=== PATIENT | female | born 1955 | race Caucasian/White ===

== ENCOUNTER 2021-03-28 10:29 | Day surgery (SDC) | payer OTHER, SELFPAY ==
[2021-03-23 13:54] VITALS: BMI 31.1
--- NOTE | 2021-03-25 12:57 | HO.ANESPROP2 ---
Documented by User: Guillermina Brown 03/25/21 12:58 HPI - Anesthesia Eval Consult details Narrative: 65yo F for Upper Endoscopy and Colonoscopy [facility] Past Medical History Medical History Asthma Barretts esophagus Depression ETOH abuse GERD (gastroesophageal reflux disease) H/O: UGI bleed Hyperlipidemia ANNE on CPAP Surgical History Surgical History History of back surgery History of esophagogastroduodenoscopy (EGD) History of excision of tumor of brain meninges History of lumpectomy of left breast Hx of colonoscopy Hx of lymph node excision [place] teeth extracted Social History Social History Are you a primary health care assistant to a significant other at home: No Do you presently have visiting nurse or other home services: No Patient Tobacco Use Status: Former Tobacco user Tobacco use type: Cigarette Advance Directives: No Advance Directives Information Provided: No Advance Directives on File: No Recently lost weight without trying: No Eating poorly because of decreased appetite: No Nutrition Risks: No Nutritional Risk Meds Allergies Allergy/AdvReac Type Severity Reaction Status Date / Time cefdinir [From OMNICEF] Allergy Unknown HIVES Verified 03/28/21 11:51 gatifloxacin [From TEQUIN] Allergy Unknown HIVES Verified 03/28/21 11:51 Sulfa (Sulfonamide Allergy Unknown HIVES Verified 03/28/21 11:51 Antibiotics) [SULFA(SULFONAMIDE ANTIBIOTICS)] Home Medications Medication Instructions Recorded Confirmed Last Taken Type bupropion HCl 150 mg PO QAM 03/23/21 03/23/21 Unknown History fluoxetine 40 mg PO DAILY 03/23/21 03/23/21 Unknown History multivitamin 1 tab PO DAILY 03/23/21 03/23/21 Unknown History rosuvastatin 10 mg PO DAILY 03/23/21 03/23/21 Unknown History Exam Exam Date and Time: March 25, 2021 1257 Height,Weight and Vital Signs: Height 5 ft 6 in Weight 87.543 kg Assessment and Plan Assessment Anesthesia Assessment: Chart Reviewed Documented by User: Archana Goodemagda 03/28/21 12:17 [facility] Past Medical History Medical History Asthma Barretts esophagus Depression ETOH abuse GERD (gastroesophageal reflux disease) H/O: UGI bleed Hyperlipidemia ANNE on CPAP Surgical History Surgical History History of back surgery History of esophagogastroduodenoscopy (EGD) History of excision of tumor of brain meninges History of lumpectomy of left breast Hx of colonoscopy Hx of lymph node excision [place] teeth extracted Social History Social History Are you a primary health care assistant to a significant other at home: No Do you presently have visiting nurse or other home services: No Patient Tobacco Use Status: Former Tobacco user Tobacco use type: Cigarette Advance Directives: No Advance Directives Information Provided: No Advance Directives on File: No Recently lost weight without trying: No Eating poorly because of decreased appetite: No Nutrition Risks: No Nutritional Risk Meds Allergies Allergy/AdvReac Type Severity Reaction Status Date / Time cefdinir [From OMNICEF] Allergy Unknown HIVES Verified 03/28/21 11:51 gatifloxacin [From TEQUIN] Allergy Unknown HIVES Verified 03/28/21 11:51 Sulfa (Sulfonamide Allergy Unknown HIVES Verified 03/28/21 11:51 Antibiotics) [SULFA(SULFONAMIDE ANTIBIOTICS)] Home Medications Medication Instructions Recorded Confirmed Last Taken Type bupropion HCl 150 mg PO QAM 03/23/21 03/23/21 Unknown History fluoxetine 40 mg PO DAILY 03/23/21 03/23/21 Unknown History multivitamin 1 tab PO DAILY 03/23/21 03/23/21 Unknown History rosuvastatin 10 mg PO DAILY 03/23/21 03/23/21 Unknown History Exam Airway Mallampati Class: II (CAps laterally) TM Dist: >3cm Neck ROM: Full Denture: Upper Heart: rrr Lungs: CTA Assessment and Plan Assessment Anesthesia Assessment: Anesthesia Plan Discussed and Chart Reviewed Final Anesthetic Review NPO: Yes ASA Class: II Final Preanesthetic Review: No Changes in Pt Med Stat and Consent Obtained/Reviewed Patient Risk: Intermediate Procedure Risk: Intermediate Anesthetic Plan Anesthetic Plan: MAC: Disposition: Standard PACU
[2021-03-28 11:53] VITALS: BP 122/59; PULSE 72; RESP 16; TEMP 36.3; O2SAT 97
[2021-03-28] MEDS: Lactated Ringers 1,000 ML 100 ML IVCONT (11:59)
[2021-03-28 14:05] VITALS: BP 108/60; PULSE 60; RESP 16; TEMP 36.1; O2SAT 95
--- NOTE | 2021-03-28 14:09 | P.BOP_ITS ---
Brief Operative Note Date of Service: 03/28/21 Pre-op diagnosis: GERD/Zazueta's, Screening Post-op diagnosis: other (Erosive esophagitis, Hiatal hernia, Gastritis, Colon polyps) Procedure: EGD with bx, Colonoscopy to the cecum with snare polypectomy(distal ascending colon polyp) and biopsy/removal of polyp Surgeon: Tico Orellana Anesthesia: MAC Was an Film Touch Up Inspector used for this Procedure?: No Estimated blood loss (mL): 4.0 Pathology: other (A. Gastric antrum B. EG Junction at 35cm C. Proximal ascending colon polyp D. Distal ascending colon polyp) Condition: stable Disposition: PACU
[2021-03-28 14:20] VITALS: BP 100/77; PULSE 59; RESP 18; O2SAT 96
[2021-03-28 14:36] VITALS: BP 98/62; PULSE 65; RESP 18; O2SAT 98
--- NOTE | 2021-04-01 10:56 | OP_ITS ---
SURGEON: Tico Orellana MD INDICATIONS: The patient presents for evaluation of previous Zazueta's esophagus and gastroesophageal reflux, personal history of tubular adenoma of the colon, and colorectal cancer screening. Full consent has been obtained from her for both procedures, including risks of bleeding and perforation. PREOPERATIVE DIAGNOSIS: POSTOPERATIVE DIAGNOSIS: PROCEDURE PERFORMED: Esophagogastroduodenoscopy with biopsies, and colonoscopy to the cecum with snare polypectomy, and biopsy and removal of polyp. ESTIMATED BLOOD LOSS: COMPLICATIONS: ANESTHESIA: Monitored anesthesia care. ASSISTANTS: SPECIMENS: PREOPERATIVE DIAGNOSES: Gastroesophageal reflux and history of Zazueta's esophagus, personal history of tubular adenoma of the colon, colorectal cancer screening. POSTOPERATIVE DIAGNOSES: Gastroesophageal reflux and history of Zazueta's esophagus, personal history of tubular adenoma of the colon, colorectal cancer screening, moderate-sized hiatal hernia, erosive esophagitis, gastritis, colon polyps, diverticulosis, and internal hemorrhoids. DESCRIPTION OF PROCEDURE: The patient was placed in the left lateral decubitus position. The Olympus video gastroscope was passed in the posterior oropharynx and upper esophagus under direct vision. The scope was passed slowly into the distal esophagus. The gastroesophageal junction appeared at 35 cm. This area was notable for some changes of erosive esophagitis with a 1 cm linear erosion. There was no evidence of any ulceration, mass, nor any definitive evidence of Zazueta's mucosa. The scope entered into the stomach. There was a moderate-sized hiatal hernia. The scope was advanced to the pylorus and the duodenum was cannulated to the descending portion. The duodenum including the bulb appeared normal without mass or ulceration. The scope was withdrawn back in the stomach. The gastric antrum had some changes of gastritis with less than 5 mm erosions. There was good peristalsis. Biopsies were obtained from the antrum. The scope was retroflexed visualizing the proximal stomach carefully, which appeared normal, without any sign of mass or ulceration. The scope was straightened. The scope was withdrawn back into the esophagus. Biopsies were obtained at the EG junction at 35 cm. Proximal to this, the esophageal mucosa appeared normal. The scope was withdrawn from the patient. She was turned around for the colonoscopy. The digital rectal exam revealed no abnormalities. The Olympus video pediatric colonoscope was entered into the rectum and advanced easily to the cecum. Once in the cecum, I did identify normal-appearing cecal pouch with appendiceal orifice and a normal-appearing ileocecal valve. There was transillumination of light deep in the right lower quadrant. The entire cecum and ileocecal valve appeared normal. The scope was then slowly withdrawn assessing all mucosal surfaces carefully. Preparation was excellent. In the very proximal ascending colon, was a flat approximately 3 or 4 mm polyp, which was biopsied and completely removed with cold biopsy forceps. In the distal ascending colon, was an approximately 12 mm flat, but raised slightly irregularly shaped polyp, which was snared and recovered by suction. The polypectomy site appeared clean, without any sign of residual polyp nor bleeding. I did not visualize any other polyps, colitis, nor angiodysplasia. There was a mild amount of sigmoid diverticulosis. In the rectum, scope was retroflexed visualizing internal hemorrhoids, but no other pathology. The rectal mucosa appeared normal. The scope was straightened out and withdrawn from the patient. She tolerated both procedures well and was returned to the recovery area in stable condition. IMPRESSION: 1. Erosive esophagitis with associated hiatal hernia. 2. Gastritis. 3. Colon polyps. 4. Diverticulosis. 5. Internal hemorrhoids. PLAN: The results of the pathology will be checked. I would recommend a repeat colonoscopy in 5 years. She was advised to stay off aspirin and NSAIDs long-term. She will be given a prescription to start omeprazole 20 mg daily given the upper endoscopy findings, as well as her previous history of ulcer disease with GI bleeding. If things are stable, she will otherwise see me on a p.r.n. basis. I do not think she will need any further upper endoscopies given no definitive evidence of Zazueta's esophagus today nor on her exam in 2016. MD LIDA To/KITTY / [id number]
== END 2021-03-28 15:15 | disposition home or self-care (01) ==
PROVIDERS: PCP Internal Medicine; Visit Provider Internal Medicine
PROC: (CPT 45385; principal; 2021-03-28 11:40)
DX: Z12.11 Encounter for screening for malignant neoplasm of colon (principal); D12.2 Benign neoplasm of ascending colon; K57.30 Diverticulosis of large intestine without perforation or abscess without bleeding; K64.8 Other hemorrhoids; K20.80 Other esophagitis without bleeding; K29.70 Gastritis, unspecified, without bleeding; K44.9 Diaphragmatic hernia without obstruction or gangrene; Z86.010 Personal history of colon polyps
CPT/HCPCS: 45385; 45380; 43239; 88305; 88342

== ENCOUNTER 2025-06-01 17:54 | Inpatient (IN) | payer MEDICARE, OTHER, SELFPAY ==
--- NOTE | 2025-06-01 | ECG_ITS ---
Test Reason : Fall Blood Pressure : */* mmHG Vent. Rate : 94 BPM Atrial Rate : 94 BPM P-R Int : 126 ms QRS Dur : 82 ms QT Int : 374 ms P-R-T Axes : 47 -29 24 degrees QTcB Int : 467 ms Normal sinus rhythm Nonspecific ST abnormality Abnormal ECG When compared with ECG of 26-Dec-2011 06:54, No significant changes seen Referred By: Diana Lara Electronically Signed By: GREGOR PETERSEN MD
--- NOTE | ~2025-06-01 | CT_ITS ---
CLINICAL HISTORY: fall, 2023 craniotomy, hx brain mass CT head without contrast Comparison: None provided Findings: No intra-axial mass, midline shift, hydrocephalus, or acute hemorrhage. No significant atrophy-like change or white matter disease. The visualized paranasal sinuses and mastoid air cells are normal. The orbits are unremarkable. Postsurgical changes related to right frontal craniotomy and underlying right frontal lobe encephalomalacia. IMPRESSION: 1. No acute intracranial findings. 2. Postsurgical changes related to right frontal craniotomy and underlying right frontal lobe encephalomalacia. This document has been electronically signed by: Monique Clark MD on 06/01/2025 20:41:29
--- NOTE | ~2025-06-01 | CT_ITS ---
CLINICAL HISTORY: fall, mild pain posteiror aspect of neck CT cervical spine without contrast Comparison: None provided Findings: Straightening of normal cervical lordosis. Grade 1 anterolisthesis of C4 on C5 on degenerative basis. Moderate multilevel spondylosis with disc space narrowing, endplate sclerosis, osteophytosis and facet arthropathy. No acute fractures or dislocations. Visualized intracranial contents are unremarkable. Soft tissues of the neck are normal. No consolidation or effusion at the lung apices. IMPRESSION: No evidence of acute fracture or traumatic listhesis of the cervical spine. Moderate multilevel spondylosis with grade 1 anterolisthesis of C4 on C5. This document has been electronically signed by: Monique Clark MD on 06/01/2025 20:31:59
[2025-06-01 18:12] VITALS: BP 127/71; PULSE 91; RESP 16; TEMP 36.9; O2SAT 97; BMI 26.3
[2025-06-01 19:07] LABS: MANUAL DIFF FLAG NO
[2025-06-01 19:08] LABS: Hematocrit 39.3 % (37.0-47.0); Hemoglobin 13.2 g/dl (12.0-16.0); Imm Gran Abs Auto 0.03 X10*3/uL (0.00-0.03); Imm Gran Pct Auto 0.4 % (0.0-0.4); Lymphocytes Absolute Auto 0.4 X10*3/uL (1.2-4.9); Mean Corpuscular HGB Conc 33.6 g/dl (31.0-35.0); Mean Corpuscular Hemoglobin 30.5 pg (27.0-33.0); Mean Corpuscular Volume 90.8 fL (80.0-98.0); NRBC Abs Auto 0.000 X10*3/uL (0.0-0.012); NRBC Pct Auto 0.0 /100WBC (0.0-0.2); Platelet Count 145 X10*3/uL (160-400); Red Blood Count 4.33 X10*6/uL (4.20-5.50); White Blood Count 8.6 X10*3/uL (4.8-10.8)
[2025-06-01 19:12] VITALS: BP 134/62; PULSE 97; RESP 18; TEMP 37.1
[2025-06-01 19:12] LABS: Appearance Urine Clear; Glucose Urine UA Negative (Negative); PH 7.5 (5.0-9.0); Specific Gravity - Urine 1.010 (1.005-1.025); UMIC TRIGGER UACC YES
[2025-06-01 19:21] LABS: Alanine Aminotransferase 23 U/L (0-31); Albumin Level 4.4 g/dL (3.5-5.0); Alkaline Phosphatase 74 U/L (39-117); Anion Gap 12 (12-20); Aspartate Amino Transferase 29 U/L (5-31); Blood Urea Nitrogen 11 mg/dL (9-16); Calcium 9.4 mg/dL (8.4-10.2); Carbon Dioxide 25 mmol/L (22-29); Chloride 106 mmol/L (96-108); Creatinine Clr Calc Pharmacy 71.9; Estimated Glomerular Filt Rate > 60; Magnesium 1.8 mg/dL (1.6-2.6); Potassium 4.3 mmol/L (3.3-5.1); Sodium 139 mmol/L (135-145); Total Protein 6.7 g/dL (6.5-8.0)
[2025-06-01 19:32] LABS: Troponin-I High Sensitivity 64.0 ng/L (<3.5-17.0)
--- OUTSIDE RECORDS SUMMARY | 2025-06-01 19:38 | XMS_ITS | Encounter Summary ---
Author Organization [facility] Address [address] [facility] [address] [place] [id number] Phone Care Team Providers Care Probate Paralegal Name Role Phone ChanceRoger martinmarita SHAFER Primary Care Provider Self-Referred, Patient Unavailable Unavailab David Weinberg MD Unavailable Encounter Details Date Type Department Care Team (Late st Contact Info) Description 07/17/2024 Procedure [facility] [address] [place] [address] Social History Tobacco Use Types Packs/Day Years Used Date Smoking Tobacco: Former Cigarettes Smokeless Tobacco: Never Alcohol Use Standard Drinks/Week Comments Not Currently 0 (1 standard drink = 0.6 oz pure alcohol) Recovering alcoholic x 20 years Child or Family Care Answer Date Record ed Do you have problems with on e of the following making it difficult for you to work, study, or receive health care? No 06/11/2024 Education Answer Date Recorded Are you interested in more education? Not on keyonna e 06/04/2024 Are you concerned about learning? Not on file 06/04/2024 No 06/04/2024 No 06/04/2024 Food Answer Date Recorded Within the past 6 months we worried whether our food would run out before we got money to buy more. Never True 06/11/2024 Within the past 6 months the food we bought just didn't last and we didn't have enough money to get more. Never True Residential Stability Answer Date Recor ded What is your housing situation today? I have jennifer reed 06/11/2024 How many times have you move d in the past 12 months? Zero (I did not move) 06/11/2024 Paying for Meds Answer Date Recorded Do you have trouble paying for medicines? No 06/11/2024 Paying Utility Bills Answer Date Record ed Do you have trouble paying your heating or elect ricity bill? No 06/11/2024 Transportation Answer Date Recorded Has the lack of transportati on kept you from medical appointments or from getting medications? No 06/11/2024 Digital Access Answer Date Recorded No 06/04/2024 No 06/04/2024 Reliable internet access at home? Not on file 06/04/2024 Device with a working camera? Not on file Comments No Sex and Gender Information Value Date Recorded Sex Assigned at Female 06/04/2024 1:33 PM EDT Legal Sex Female 1:27 PM EDT Gender Identity Female 06/04/2024 1:33 PM EDT Sexual Orientation Straight 06/04/2024 1: 33 PM EDT documented as of this encounter Plan of Treatment Not on file documented as of this encounter Visit Diagnoses Not on filedocumented in this encounter Care Teams Probate Paralegal Relationship Specialty Start Date End Date Gretchen Fletcher NP [address] [place] [address] PCP - General Nurse Practitioner 06/04/24 Self-Referred, Patient Referring Physician 06/04/24 David Roper MD [facility] [place] [address] [email or web address] Referring Physician Radiation Oncology 06/04/24 documented as of this encounter Additional Source Comments The information contained in this document represents components of the legal health record. It is not the complete legal health record.[facility]
--- OUTSIDE RECORDS SUMMARY | 2025-06-01 19:39 | XMS_ITS | Patient Health Record ---
Author Organization [facility] Address [address] [place] [address] Care Team Providers Care Trench Trimmer Fine Name Role Phone Sera (RETIRED) Umesh SHEARER Primary Care Prov ider Unavailable Tico Orellana Unavailable [phone] Allergies Allergen (clinical drug ingredient) Drug/Non Drug Allergy documented on EMR Reaction Allergy Type Onset Date Status Sulfa Unknown Drug Allergy Active omnicef (uncoded) Unknown Allergy Ac tive gatifloxacin tequin (uncoded) Unknown Allergy Active Reason For Referral No Information Medications Medication SIG (Take, Route, Frequency, Duration) Notes Start Date End Date Status Omeprazole 20 MG TAKE 1 CAPSULE BY MO UTH EVERY DAY IN THE MORNING for 90 Active buPROPion HCl 150mg Active Fluoxetine 40 Active Multivitamin Active Rosuvastatin Calcium 10 MG Orally Active Tylenol Active Immunizations Vaccine Route Administration Date Status Comme nts Influenza Unknown 03/09/2021 Refused Problems Problem Type SNOMED Code ICD Code Onset Dates Problem Status W/U Status Risk Notes Problem Esophageal reflux (567789731) Esophageal reflux (K21.9) Active confirmed Problem 143736341 Encounter for screening for malignant neoplasm of colon (Z12.11) Active confirmed Problem 552525489 History of adenomatous polyp of colon (Z86.010) Active confirmed Problem 658196030 Zazueta's esophagus without dysplasia (K22.70) Active confirmed Problem Screening for malignant neoplasm of rectum (358886141) Encounter for screening for malignant neoplasm of rectum (Z12.12) Active confirmed Problem Gastritis (6123431) Gastritis (K29.70) Active confirmed Problem 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) Active confirmed Problem Diverticulosis of sigmoid colon (492997563) Diverticulosis of sigmoid colon (K57.30) Active confirmed Plan Of Treatment Future Test Test Name Order Date UPPER GI ENDOSCOPY 11/16/2015 COLONOSCOPY 11/16/2015 UPPER GI ENDOSCOPY 03/09/2021 COLONOSCOPY 03/09/2021 Insurance Providers Payer Name Payer Address Payer Phone Subscriber Number Group Number Insured Name Patient Relationship to Insured Coverage Start Date Coverage End Date [facility] [address] [place] [address] [id number] KRIS PALACIO Self - patient is the insured Medical (General) History Medical History History ICD Code Surveillance EGD/Screening C olonoscopy 06/13/2011-small HH and Zazueta's, no dysplasia; gastritis, neg. H.pylori; tubular adenomas, diverticulosis and internal hemorrhoids Depression EtOH abuse with sobriety since 2000 GERD/Barretts Esophagus as above Denies OH,DM,CVA,renal disease Asthma Upper GI bleeding in 2000 in relation to gastric ulcers-this was when she was actively drinking, smoking, and using NSAIDs. Sleep apnea-cpap machine Hyperlipidemia Meningioma brain tumor removed in 2018-Kelin Mason at [facility]--no XRT/Chemo Colonoscopy in February of 2016 w ith removal of 2 small tubular adenomas and 2 hyperplastic polyps EGD in February of 2016 with a mo derate-sized hiatal hernia, minimal changes of reflux, and biopsies negative for Zazueta's mucosa--there was no esophagitis, gastritis, nor ulcer disease Surgical History Surgery Date(Month/Year) Back surgery as a child Breast surgery on left breast--benign Benign growth under left arm-Dr. Pierre Meningioma brain tumor surgery removal 2 019
[2025-06-01 19:43] LABS: Resp Syncy Virus RNA Qual PCR NEGATIVE (Negative); SARS COV2 PCR INHOUSE NEGATIVE (Negative)
--- NOTE | 2025-06-01 19:48 | PC.NURSE ---
Spoke with pt brother Glen, he confirmed Aphasia is pt baseline since June of 2024 after tumor removal from brain and radiation. Pt now having increased falls. Provider advised.
--- NOTE | 2025-06-01 19:49 | ED.FALL ---
HPI - Fall General Chief Complaint: Fall Stated Complaint: FALL, 2 HOURS ON GROUND Time Seen by Provider: 06/01/25 17:56 Source: patient and EMS Mode of arrival: EMS Limitations: other History of Present Illness ED Provider: Dr. Diana Lara HPI Narrative: Patient comes to the emergency room complaining of a fall. Patient states that she was just getting home, picked up the mail and then walked to her garage where they are stairs going downstairs. Patient states that she missed a step and fell a proximally 20 stairs sliding down. Patient states that she bumped her head at least [address] down. Patient denies loss of consciousness. Patient denies being on blood thinners. Patient has different stories as far as how long she was on the floor, however, it is estimated that she was at least 2 hours on the floor before calling 911. Patient is not sure how EMS got to her house, but she believes that she may have breast her life Alert button and EMS came. Patient denies headache or neck pain. However, patient states that in 2018 she was diagnosed with a brain tumor, had a craniotomy and recently finished radiation for brain tumor. At this time, patient complaining of headaches Related Data Home Medications ?Medication ?Instructions ?Recorded ?Confirmed bupropion HCl 150 mg 24 hr tablet, 150 mg PO QAM 03/23/21 03/23/21 extended release fluoxetine 40 mg capsule 40 mg PO DAILY 03/23/21 03/23/21 multivitamin 1 tab PO DAILY 03/23/21 03/23/21 rosuvastatin 10 mg tablet 10 mg PO DAILY 03/23/21 03/23/21 Allergies Allergy/AdvReac Type Severity Reaction Status Date / Time cefdinir (From OMNICEF) Allergy Unknown HIVES Verified 06/01/25 18:18 gatifloxacin (From TEQUIN) Allergy Unknown HIVES Verified 06/01/25 18:18 Sulfa (Sulfonamide Allergy Unknown HIVES Verified 06/01/25 18:18 Antibiotics) (SULFA(SULFONAMIDE ANTIBIOTICS)) Review of Systems Review of Systems: Constitutional : No Weight loss, No Fever, No Chills, No Night Sweats, No Fatigue, No Malaise ENT/Mouth : No Hearing loss, No Ear Pain, No Nasal Congestion, No Sinus Pain, No Hoarseness, No sore throat, No Rhinorrhea, No Swallowing Difficulty Eyes: No Eye Pain, No Swelling, No Redness, No Foreign Body, No Discharge, No Vision Changes Cardiovascular : No Chest Pain, No SOB, No Dyspnea on Exertion, No Orthopnea, No Edema, No Palpitations Respiratory : No Cough, No Sputum, No Wheezing, No Smoke Exposure, No Dyspnea Gastrointestinal : No Nausea, No Vomiting, No Diarrhea, No Constipation, No abdominal Pain, No Hematochezia, No Melena Genitourinary : no irregular bleeding, No Dysuria, No Urinary Frequency, No Hematuria, No Urinary Incontinence, No Urgency, No Flank Pain, No Urinary Flow Changes, No Hesitancy Musculoskeletal : No joint pain, No Myalgias, No Joint Swelling Skin complaining of minor abrasions on the face Neuro : No Weakness, No Numbness, No Paresthesias, No Loss of Consciousness, No Dizziness, complaining of headache Psych : No Anxiety/Panic, No Depression, No SI/HI/AH/VH, No Social Issues, Heme/Lymph: No Bruising, No Bleeding,No Lymphadenopathy Endocrine : No Polyuria, No Polydipsia, No Temperature Intolerance PMFSH Past Medical History Medical History Hyperlipidemia H/O: UGI bleed ANNE on CPAP Asthma Barretts esophagus GERD (gastroesophageal reflux disease) ETOH abuse Depression Surgical History Hx of lymph node excision [place] teeth extracted History of lumpectomy of left breast History of back surgery History of excision of tumor of brain meninges Hx of colonoscopy History of esophagogastroduodenoscopy (EGD) Social History Social History Are you a primary rn transitional care to a significant other at home: No Do you presently have visiting nurse or other home services: No Patient Tobacco Use Status: Former Tobacco user Tobacco use type: Cigarette Smoked in Last 30 Days: No Advance Directives: No Advance Directives Information Provided: No Do you have a plan to hurt others: No Plan Physical Exam Exam: Exam: Appearance: Alert. Oriented X3. No acute distress. Eyes: Pupils equal, round and reactive to light. ENT: Pharynx normal. Neck: Normal inspection. Neck supple. No lymph nodes noted. No crepitus CVS: Normal heart rate and rhythm. Pulses normal. Normal S1 and S2 Respiratory: No respiratory distress. Breath sounds normal. No Wheezing. No rales Abdomen: Soft and nontender. No rigidity. No distention. Skin: Skin warm and dry. Normal skin color. Normal skin turgor. Patient has small superficial abrasions to the face. Extremities: No lower extremity edema. No Lacerations. No Rash Neuro: Oriented X 3. No motor deficit. No sensory deficit. Moving all extremities. No slurred speech. However, it was noted that patient has obvious aphasia. Psych: calm, cooperative, normal affect Vital Signs: Vital Signs: Last Vital Signs Temp 98.0 F 06/02/25 00:00 Pulse 88 06/02/25 00:00 Resp 18 06/02/25 00:00 BP 95/62 06/02/25 00:00 Pulse Ox 98 06/02/25 00:00 O2 Del Method Room Air 06/02/25 00:00 BMI result Body Mass Index 26.3 Course Course Course Narrative: Able to get in touch with the patient's brother who confirms that the patient has had chronic aphasia since June of 2024 when the patient had a craniotomy done. Aphasia is baseline for her. Patient's labs and imaging pending Medications Administered Discontinued Medications Generic Name Dose Route Start Last Admin Trade Name Freq PRN Reason Stop Dose Admin Acetaminophen 975 mg 06/01/25 23:15 06/01/25 23:31 Acetaminophen 325 Mg Tablet PO 06/01/25 23:16 975 mg ONCE ONE Administration Medical Decision Making Medical Decision Making [facility] Narrative: My interpretation of EKG: Normal sinus rhythm, heart rate 94, no ST segment depression or elevation, no T-wave inversion, QTC 467 My interpretation of labs: No significant abnormality in patient's hematology, platelet count slightly decreased at 145, normal chemistry, normal LFTs, troponin 64.0. Urinalysis negative for UTI, serology negative for influenza RSV and COVID Patient has no chest pain. CPK pending. It is estimated that patient was on the floor for a proximally 2 hours We attempted walking the patient in the emergency room, patient seemed to be a bit confused how to get in and out of bed. Not safe to be discharged. Additionally, patient's troponin kept increasing. Troponin 1 was 64, 2nd troponin 194, 3rd troponin 324. We texted Dr. Guerra from Cardiology. However, no callback/text until now. We repeated EKG, no EKG changes, patient is asymptomatic. Patient given Lovenox 1 milligram/kilogram, I discussed the above-mentioned with Dr. Reilly, patient being admitted Differential Diagnosis Differential Diagnoses: The differential diagnosis associated with the presentation includes (Contusion, concussion, intracranial bleed) Admission/Observation Consideration of admission/observation: Escalation of care including admission/observation considered (Given patient's past medical history, history of craniotomy, observation was considered) Lab Data MDM Lab Attestation statement: I reviewed the patient's lab results. 06/01/25 18:54 06/01/25 18:54 Labs: Lab Results 06/01/25 06/01/25 06/01/25 Range/Units 18:54 19:02 21:41 WBC 8.6 (4.8-10.8) X10*3/uL RBC 4.33 (4.20-5.50) X10*6/uL Hgb 13.2 (12.0-16.0) g/dl Hct 39.3 (37.0-47.0) % MCV 90.8 (80.0-98.0) fL MCH 30.5 (27.0-33.0) pg MCHC 33.6 (31.0-35.0) g/dl RDW 12.0 (11.0-16.0) % Plt Count 145 L (160-400) X10*3/uL MPV 9.9 (9.4-12.3) fL Immature Gran % (Auto) 0.4 (0.0-0.4) % Neut % (Auto) 86.8 H (45-73) % Lymph % (Auto) 5.0 L (20-40) % [place] % (Auto) 7.3 (2-11) % Eos % (Auto) 0.1 (0-4) % Baso % (Auto) 0.4 (0-2) % Lymph # (Auto) 0.4 L (1.2-4.9) X10*3/uL [place] # (Auto) 0.6 (0.1-1.2) X10*3/uL Eos # (Auto) 0.0 (0.0-0.4) X10*3/uL Baso # (Auto) 0.0 (0.0-0.2) X10*3/uL Abs Immat Gran (auto) 0.03 (0.00-0.03) X10*3/uL Absolute Neuts (auto) 7.4 (2.0-8.3) x10*3/uL Absolute Nucleated RBC 0.000 (0.0-0.012) X10*3/uL Nucleated RBC % (auto) 0.0 (0.0-0.2) /100WBC Sodium 139 (135-145) mmol/L Potassium 4.3 (3.3-5.1) mmol/L Chloride 106 (96-108) mmol/L Carbon Dioxide 25 (22-29) mmol/L Anion Gap 12 (12-20) BUN 11 (9-16) mg/dL Creatinine 0.77 (0.5-1.4) mg/dL Estim Creat Clear Calc 71.9 Estimated GFR > 60 Random Glucose 95 (60-115) mg/dL Calcium 9.4 (8.4-10.2) mg/dL Magnesium 1.8 (1.6-2.6) mg/dL Total Bilirubin 0.5 (0.0-1.0) mg/dL AST 29 (5-31) U/L ALT 23 (0-31) U/L Alkaline Phosphatase 74 (39-117) U/L Total Creatine Kinase 427 H (26-140) U/L Troponin I High Sens 64.0 H* 193.8 H* D (<3.5-17.0) ng/L Total Protein 6.7 (6.5-8.0) g/dL Albumin 4.4 (3.5-5.0) g/dL Urine Color Yellow Urine Appearance Clear Urine pH 7.5 (5.0-9.0) Ur Specific [place] 1.010 (1.005-1.025) Urine Protein Negative (Neg-Trace) mg/dL Urine Glucose (UA) Negative (Negative) mg/dL Urine Ketones Trace (Negative) mg/dL Urine Blood Small (1+) H (Negative) Urine Nitrite Negative (Negative) Ur Leukocyte Esterase Negative (Negative) Urine RBC 11-20 H (0-2) /HPF Urine WBC 0-5 (0-5) /HPF Ur Squamous Epith Cells 0-2 (0-2) /HPF Urine Bacteria None Seen (None Seen) Hyaline Casts 0-2 (0-2) /LPF Influenza Type A (PCR) NEGATIVE (Negative) Influenza Type B (PCR) NEGATIVE (Negative) RSV RNA Qual (PCR) NEGATIVE (Negative) SARS-CoV-2 RNA (RT-PCR) NEGATIVE (Negative) 06/02/25 Range/Units 00:08 WBC (4.8-10.8) X10*3/uL RBC (4.20-5.50) X10*6/uL Hgb (12.0-16.0) g/dl Hct (37.0-47.0) % MCV (80.0-98.0) fL MCH (27.0-33.0) pg MCHC (31.0-35.0) g/dl RDW (11.0-16.0) % Plt Count (160-400) X10*3/uL MPV (9.4-12.3) fL Immature Gran % (Auto) (0.0-0.4) % Neut % (Auto) (45-73) % Lymph % (Auto) (20-40) % [place] % (Auto) (2-11) % Eos % (Auto) (0-4) % Baso % (Auto) (0-2) % Lymph # (Auto) (1.2-4.9) X10*3/uL [place] # (Auto) (0.1-1.2) X10*3/uL Eos # (Auto) (0.0-0.4) X10*3/uL Baso # (Auto) (0.0-0.2) X10*3/uL Abs Immat Gran (auto) (0.00-0.03) X10*3/uL Absolute Neuts (auto) (2.0-8.3) x10*3/uL Absolute Nucleated RBC (0.0-0.012) X10*3/uL Nucleated RBC % (auto) (0.0-0.2) /100WBC Sodium (135-145) mmol/L Potassium (3.3-5.1) mmol/L Chloride (96-108) mmol/L Carbon Dioxide (22-29) mmol/L Anion Gap (12-20) BUN (9-16) mg/dL Creatinine (0.5-1.4) mg/dL Estim Creat Clear Calc Estimated GFR Random Glucose (60-115) mg/dL Calcium (8.4-10.2) mg/dL Magnesium (1.6-2.6) mg/dL Total Bilirubin (0.0-1.0) mg/dL AST (5-31) U/L ALT (0-31) U/L Alkaline Phosphatase (39-117) U/L Total Creatine Kinase (26-140) U/L Troponin I High Sens 324.2 H* D (<3.5-17.0) ng/L Total Protein (6.5-8.0) g/dL Albumin (3.5-5.0) g/dL Urine Color Urine Appearance Urine pH (5.0-9.0) Ur Specific [place] (1.005-1.025) Urine Protein (Neg-Trace) mg/dL Urine Glucose (UA) (Negative) mg/dL Urine Ketones (Negative) mg/dL Urine Blood (Negative) Urine Nitrite (Negative) Ur Leukocyte Esterase (Negative) Urine RBC (0-2) /HPF Urine WBC (0-5) /HPF Ur Squamous Epith Cells (0-2) /HPF Urine Bacteria (None Seen) Hyaline Casts (0-2) /LPF Influenza Type A (PCR) (Negative) Influenza Type B (PCR) (Negative) RSV RNA Qual (PCR) (Negative) SARS-CoV-2 RNA (RT-PCR) (Negative) Independent Interpretation I performed an independent interpretation of an: CT Scan Critical Care Time Critical Care Time Critical Care Time: Yes Total Critical Care Time: 60 Attestation: I have personally provided critical care time. Time includes review of lab data, radiology results, discussion with consultants, and monitoring for potential decompensation. Intervention performed as documented. Discharge Plan Discharge Clinical Impression: Fall, Elevated troponin Patient Disposition: Admitted As Inpatient Print Language: [place]
[2025-06-01 21:00] VITALS: BP 130/78; PULSE 97; RESP 17; O2SAT 97
[2025-06-01 21:41] VITALS: BP 126/63; PULSE 92; RESP 20; O2SAT 95
[2025-06-01 22:09] LABS: Troponin-I High Sensitivity 193.8 ng/L (<3.5-17.0)
--- NOTE | 2025-06-01 22:33 | PC.NURSE ---
this rn and second rn performed ambulation trial. pt incontinent of urine, unsteady gate, and noted to be confused by the process of getting back into bed. dr gilbert made aware
[2025-06-01 23:02] VITALS: BP 130/69; PULSE 99; RESP 18; O2SAT 96
--- NOTE | 2025-06-01 23:06 | PC.NURSE ---
pt states she has a headache and is requesting Tylenol. Provider advised, awaiting new orders.
--- NOTE | 2025-06-01 23:34 | PC.NURSE ---
Tylenol ordered per Dr Lara pt medicated per DEC for headache,
[2025-06-02] VITALS (10 sets, daily range): BP systolic 95–131; BP diastolic 53–73; PULSE 70–88; RESP 16–20; TEMP 36.6–37.2; O2SAT 94–98; BMI 32.3
[2025-06-02 00:37] LABS: Troponin-I High Sensitivity 324.2 ng/L (<3.5-17.0)
--- NOTE | 2025-06-02 00:39 | ECG_ITS ---
Test Reason : repeat Blood Pressure : */* mmHG Vent. Rate : 86 BPM Atrial Rate : 86 BPM P-R Int : 128 ms QRS Dur : 80 ms QT Int : 394 ms P-R-T Axes : 4 -31 13 degrees QTcB Int : 471 ms Normal sinus rhythm Left axis deviation Nonspecific ST abnormality Abnormal ECG When compared with ECG of 01-Jun-2025 18:35, No significant change was found Referred By: Diana Lara Electronically Signed By: GREGOR PETERSEN MD
--- NOTE | 2025-06-02 00:39 | PC.NURSE ---
critical troponin reported 324.2. this rn made dr gilbert aware of results. per md repeat ekg order placed. denies chest pain denies sob
--- NOTE | 2025-06-02 01:43 | PM.IMHP ---
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 Roper neurologist at [facility] with dysarthria and expressive aphasia and balance issues presents to the ED via ambulance status post mechanical fall unwitnessed. Patient states she was in her kitchen which has a chronic opening to the basement stairs with no door, and while walking in the kitchen patient suddenly lost her balance and literally fell down the basement stairs that are carpeted. Patient believes she hit her nose on the wall and was on the floor for approximately 1.5 hours before she had enough strength to slowly get up and walk up the flight of stairs. Patient was wearing a Life Alert device which did not work properly. Patient was able to call for help at the top of the stairs. Patient denies any loss of consciousness but stated at the bottom of the stairs at the end of the fall she felt sweaty and her palms were also sweaty. Patient denied any chest pain throughout this duration or shortness of breath. Patient denies being on any blood thinners and can not take NSAIDS due to gastritis. Pt denies hx of diabetes. Pt currently only has mild ROSALES in the frontal area. Workup in the ED identified a CT of the head and CT of the spine negative for any acute findings.Pt's CK elevated 427. Troponns continued to rise, 64 - 193.8 - 324.2. ECG NSR, LAD, Nonspecific ST abnormality. Pt denies chest pain or SOB. Pt has had a stress test in the past and results were normal. Pt has no loss of ROM or strength in upper and lower extremities and pt is not complaining of pain with breathing, rib pain or back pain. Pt has no skin breakdown except for small abrasion on the bridge of the nose. Pt being admitted for elevated troponins, PT eval status post fall. Patient currently does live alone, drives and is independent with all aspects of care. Patient has had PT in the past to help with balance issues related to her previous brain surgeries. Patient does use a walker when at home. Patient does wear appropriate footwear when ambulating. Review of Systems Review of Systems: Patient currently only has a very mild frontal headache after receiving 975 mg of Tylenol 3 hours prior. Patient denies any chest pain, shortness of breath at rest or with exertion, abdominal pain, lower leg pain, rib pain. Patient has no nuchal rigidity or pain in the neck or limited range of motion in the neck or upper and lower extremities. Yes all other systems are reviewed and are negative [facility] Medical History Tobacco use Alcohol use disorder History of fall Gastritis Erosive esophagitis Hiatal hernia Diverticulosis Meningioma, cerebral Castlemans disease Hyperlipidemia H/O: UGI bleed ANNE on CPAP Asthma Barretts esophagus GERD (gastroesophageal reflux disease) ETOH abuse Depression Cognitive capacity: Alert and orientated x3 Functional capacity: uses cane/walker Patient : No Pertinent family history: Father age 82 from heart disease Mother alive age 92 with history of CVA Surgical History Status post brain surgery Hx of lymph node excision [place] teeth extracted History of lumpectomy of left breast History of back surgery History of excision of tumor of brain meninges Hx of colonoscopy History of esophagogastroduodenoscopy (EGD) Social History (Updated 06/02/25 @ 02:59 by FRANC Bradford) Are you a primary patient care representative to a significant other at home: No Do you presently have visiting nurse or other home services: No Alcohol intake: former Comment: Quit 20 years ago Patient Tobacco Use Status: Former Tobacco user Tobacco use type: Cigarette Smoked in Last 30 Days: No Advance Directives: No Advance Directives Information Provided: No Do you have a plan to hurt others: No Plan Patient : No Ebola Risk: Travel/Contact With Anyone From Affected Area/s: No Has Patient Experienced Ebola Symptoms: No Meds Allergies Allergy/AdvReac Type Severity Reaction Status Date / Time cefdinir (From OMNICEF) Allergy Unknown HIVES Verified 06/01/25 18:18 gatifloxacin (From TEQUIN) Allergy Unknown HIVES Verified 06/01/25 18:18 Sulfa (Sulfonamide Allergy Unknown HIVES Verified 06/01/25 18:18 Antibiotics) (SULFA(SULFONAMIDE ANTIBIOTICS)) Active Medications: Current Medications Acetaminophen (Acetaminophen 325 Mg Tablet) 650 mg PO Q6H PRN PRN Reason: Pain, Mild 1-3,fever,headache Albuterol/Ipratropium (Albuterol/Iprat 2.5/0.5mg 3 Ml Ampul.Neb) 3 ml INHALE Q4H PRN PRN Reason: Shortness of Breath/Wheezing Calcium Carbonate (Calcium Carbonate 750 Mg Tab.Chew) 750 mg PO Q4H PRN PRN Reason: Heartburn Magnesium Hydroxide (Milk Of Magnesia 30 Ml Oral.Susp) 30 ml PO DAILY PRN PRN Reason: Constipation Melatonin (Melatonin 3 Mg Tablet) 6 mg PO BEDTIME PRN PRN Reason: Insomnia Ondansetron HCl (Ondansetron Hcl 4 Mg/2 Ml Vial) 4 mg IVPUSH Q8H PRN PRN Reason: Nausea and Vomiting Polyethylene Glycol (Polyethylene Glycol 3350 17 Gm Powd.Pack) 17 gm PO DAILY PRN PRN Reason: Constipation Senna (Sennosides 8.6 Mg Tablet) 17.2 mg PO BEDTIME DINAH Sodium Chloride (0.9 % Sodium Chloride Flush 3 Ml Syringe) 3 ml IVFLUSH QSHIFT DINAH Home Medications ?Medication ?Instructions ?Recorded ?Confirmed ?Last Taken ?Type bupropion HCl 150 mg 24 hr tablet, 150 mg PO QAM 03/23/21 03/23/21 Unknown History extended release fluoxetine 40 mg capsule 40 mg PO DAILY 03/23/21 03/23/21 Unknown History multivitamin 1 tab PO DAILY 03/23/21 03/23/21 Unknown History rosuvastatin 10 mg tablet 10 mg PO DAILY 03/23/21 03/23/21 Unknown History Physical Exam Vital Signs and Narrative: Vital Signs: Last Vital Signs Temp 98.0 F 06/02/25 00:00 Pulse 88 06/02/25 00:00 Resp 18 06/02/25 00:00 BP 95/62 06/02/25 00:00 Pulse Ox 98 06/02/25 00:00 O2 Del Method Room Air 06/02/25 00:00 BMI result Body Mass Index 26.3 Alert and orientated X3, able to give good history. Neuro: CN II-X11 intact, visual acuity intact, able to conversation fluently with episodes of aphasia and dysarthria EYES: PERRLA, EOM intact, sclerae nonicteric, conjunctiva pink ENT: hearing intact, no issues with swallowing, uvula midline, lips moist, nares patent no epistaxis Cardiac: S1 S2 RRR, no murmur, no JVD, no edema in Lower ext Pulmonary: lungs clear to auscultation B Abdominal: BS active in all 4 quadrants, no guarding, tenderness, rebounding MSK: strength 5/5 upper and lower extremities : no CVA tenderness no bladder distension Extremities: no edema in lower extremities, PT and DP pulses palpable +2 Psych: mood stable, judgement and insight good Skin: Small abrasion on the bridge of the nose, no skin tears or abrasions noted, no bruising identified Results Labs 06/02/25 05:21 06/02/25 05:21 Labs: Laboratory Results - last 24 hr 06/01/25 06/01/25 06/01/25 18:54 19:02 21:41 MCV 90.8 MCH 30.5 MCHC 33.6 RDW 12.0 Plt Count 145 L MPV 9.9 Immature Gran % (Auto) 0.4 Neut % (Auto) 86.8 H Lymph % (Auto) 5.0 L [place] % (Auto) 7.3 Eos % (Auto) 0.1 Baso % (Auto) 0.4 Lymph # (Auto) 0.4 L [place] # (Auto) 0.6 Eos # (Auto) 0.0 Baso # (Auto) 0.0 Abs Immat Gran (auto) 0.03 Absolute Neuts (auto) 7.4 Absolute Nucleated RBC 0.000 Nucleated RBC % (auto) 0.0 Anion Gap 12 Estim Creat Clear Calc 71.9 Estimated GFR > 60 Random Glucose 95 Calcium 9.4 Magnesium 1.8 Total Bilirubin 0.5 AST 29 ALT 23 Alkaline Phosphatase 74 Total Creatine Kinase 427 H Total Protein 6.7 Albumin 4.4 Urine Color Yellow Urine Appearance Clear Urine pH 7.5 Ur Specific [place] 1.010 Urine Protein Negative Urine Glucose (UA) Negative Urine Ketones Trace Urine Blood Small (1+) H Urine Nitrite Negative Ur Leukocyte Esterase Negative Urine RBC 11-20 H Urine WBC 0-5 Ur Squamous Epith Cells 0-2 Urine Bacteria None Seen Hyaline Casts 0-2 Influenza Type A (PCR) NEGATIVE Influenza Type B (PCR) NEGATIVE RSV RNA Qual (PCR) NEGATIVE SARS-CoV-2 RNA (RT-PCR) NEGATIVE ECG Attestation: I personally reviewed and interpreted this ECG as follows: (Normal sinus rhythm with left axis deviation, nonspecific ST changes) Prior ECG tracings: available for review Imaging Radiologist's Impressions: CT of the head Negative for acute findings CT of the spine Negative for acute findings Assessment and Plan (1) Fall: Qualifiers: Encounter type: initial encounter Qualified Code(s): W19.XXXA - Unspecified fall, initial encounter Status: Acute (2) Elevated troponin: Status: Acute Plan Patient is a 61-year-old female with past medical history hyperlipidemia, Castelman's disease with surgical removal, alcohol use disorder sober for 20 years, former tobacco use with cessation 20 years prior, erosive esophagitis, gastritis, Barretts esophagus, diverticulosis, moderate hiatal hernia, internal hemorrhoids, 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 Roper neurologist at [facility] with dysarthria and expressive aphasia and balance issues presents to the ED via ambulance status post mechanical fall unwitnessed. Patient did fall down her basement stairs which is opened to the kitchen and has no door. Patient lost her balance ?tripped over herself? and literally went down the opening of the basement stairs. Patient does have a life Alert but it did not function properly. Patient was down approximately 1.5 hours. S/P Mechanical Fall with mild Rhabdomyolosis HEAD CT and Cervical Spine CT neg for acute findings PT eval in AM Patient's physical exam is reassuring, no evidence of upper or lower extremity involvement with injury, no rib pain, no open abrasions or lacerations IV fluids initiated, 0.9 normal saline at 100 per hour Repeat CK in the a.m. Renal function stable Reviewed measures to consider at home to help prevent future falls, injury to include adding a door to basement stair entry Pt will call life alert [employer] once home to inform about malufunction of device Elevated Troponin Cardiology consulted ECHO in AM EKG normal sinus rhythm with left axis deviation and nonspecific ST changes Lovenox wt baseed X1 ASA, Statin (hx of HLD on statin) - patient reluctant to take aspirin due to her history of gastritis, enteric-coated aspirin ordered Telemetry Trend troponins BNP pending HLD Continue Statin Cardiac Diet Hx of meningeal tumor Grade 2 non-cancerous w resection/craniotomy X2 - chronic aphasia and dysarthria and loss of balance Patient follows with Dr. Roper, neurologist at [facility] - last MRI was less than 6 months prior and there is no evidence of meningioma or growth since patient completed radiation in October of 2024 Gastritis/Barretts esophagus/erosive esophagitis Patient states she takes omeprazole at home, we will continue Avoid NSAIDs - patient agreeable to enteric-coated aspirin secondary to elevated troponins DVT prophylais: Lovenox wt based X1 MED REC pending FULL CODE Quality Stroke Does the patient have a stroke diagnosis?: No Reason for No Anti-thrombotic by Day Two: N/A - Med Ordered VTE Prior VTE?: No VTE Risk Level:: Medical - moderate - high VTE Device Contraindication: N/A - Device Ordered VTE Drug Contraindication: N/A - Med Ordered
[2025-06-02] MEDS: Aspirin Enteric Coated 81 MG TABLET.DR PO (02:52)
--- NOTE | 2025-06-02 03:01 | PC.NURSE ---
pt medicated per MAR
[2025-06-02 05:43] LABS: MANUAL DIFF FLAG NO
[2025-06-02 05:50] LABS: Hematocrit 37.5 % (37.0-47.0); Hemoglobin 12.4 g/dl (12.0-16.0); Imm Gran Abs Auto 0.02 X10*3/uL (0.00-0.03); Imm Gran Pct Auto 0.3 % (0.0-0.4); Lymphocytes Absolute Auto 1.1 X10*3/uL (1.2-4.9); Mean Corpuscular HGB Conc 33.1 g/dl (31.0-35.0); Mean Corpuscular Hemoglobin 30.1 pg (27.0-33.0); Mean Corpuscular Volume 91.0 fL (80.0-98.0); NRBC Abs Auto 0.000 X10*3/uL (0.0-0.012); NRBC Pct Auto 0.0 /100WBC (0.0-0.2); Platelet Count 148 X10*3/uL (160-400); Red Blood Count 4.12 X10*6/uL (4.20-5.50); White Blood Count 5.9 X10*3/uL (4.8-10.8)
[2025-06-02 06:07] LABS: Anion Gap 15 (12-20); Blood Urea Nitrogen 9 mg/dL (9-16); Calcium 9.1 mg/dL (8.4-10.2); Carbon Dioxide 21 mmol/L (22-29); Chloride 109 mmol/L (96-108); Cholesterol 156 mg/dL (<200); Creatinine Clr Calc Pharmacy 75.8; Estimated Glomerular Filt Rate > 60; HDL Cholesterol 51 mg/dL (>40); Potassium 3.7 mmol/L (3.3-5.1); Sodium 141 mmol/L (135-145); Triglycerides 67 mg/dL (<150)
[2025-06-02 06:14] LABS: INTERNATIONAL NORM RATIO 1.1 (0.9-1.1); Prothrombin Time 12.3 SEC (10.9-12.4)
[2025-06-02 06:17] LABS: Partial Thromboplastin Time 47.2 SEC (26.7-34.1)
[2025-06-02 06:18] LABS: Troponin-I High Sensitivity 276.0 ng/L (<3.5-17.0)
--- NOTE | 2025-06-02 06:18 | PC.NURSE ---
lab called, troponin critical (276.0), Inga SHAFER, admitting provider advised.
--- NOTE | 2025-06-02 07:00 | CA_ITS ---
Transthoracic Echocardiogram Patient (Last, First, Middle): Brittny Fuentes A Gender: Female Date of : 1955 Age: 69 Procedure Date: 06/02/2025 Procedure Type: Transthoracic Echocardiogram Location: ER Height: 167.64 cm Weight: 74.84 kg BSA: 1.84 m2 Heart Rate: 84 bpm BP: 124 / 60 mmHg Glove Tagger: BETINA Posada MD: Kristen Meléndez [facility] Spectrographer: Dustin Guerra MD Symptoms: elevated troponin Study Quality: Adequate ECG Rhythm: Sinus Conclusions: - 1. Normal LV ejection fraction of 60 65% with grade 1 diastolic dysfunction with possible basal inferior inferolateral wall motion abnormality 2. Wzle-hb-duyjqcdd mitral regurgitation 3. Mildly dilated ascending aorta at 3.9 cm 4. Normal RV systolic pressure 5. No pericardial effusion Findings Left Ventricle Normal left ventricular size, thickness, and systolic function. The visually estimated ejection fraction is between 60-65%. Spectral Doppler is indicative of an impaired relaxation filling pattern. E/E prime ratio is <8, consistent with normal filling pressures. Evidence suggests grade I (mild) diastolic dysfunction. Possible basal inferior and basal inferolateral wall motion abnormality. Right Ventricle Normal right ventricular cavity size and systolic function. Atria Both atria are normal in size. There is lipomatous hypertrophy of the interatrial septum. There is no evidence of interatrial shunt. Aortic Valve Normal aortic valve structure and function. There is no aortic valve stenosis. There is no aortic valve regurgitation. Mitral Valve Normal mitral valve structure and function. There is mild to moderate mitral valve regurgitation. There is no mitral valve stenosis. Pulmonic Valve The pulmonic valve is likely normal. There is trace pulmonic valve regurgitation. Tricuspid Valve Normal tricuspid valve structure. There is trace tricuspid valve regurgitation. The right ventricular systolic pressure is normal. The right ventricular systolic pressure is 24 mmHg. Normal right atrial pressure. There is no evidence of pulmonary hypertension. Great Vessels The pulmonary artery was not well visualized. There is mild dilatation of the ascending aorta measuring 3.90 cm. Venous The inferior vena cava is normal in size and collapses greater than 50% with inspiration. Pericardium/Pleural There is no evidence of pericardial effusion. Prior Study Comparison No prior study available for comparison. Measurements 2D Linear Measurements IVSd: 1.12 0.6-0.9/0.6-1.0 cm LVIDd: 3.99 3.9-5.3/4.2-5.9 cm LVIDd Index: 2.17 2.4-3.2/2.2-3.1 cm/m2 LVIDs: 2.51 2.0-3.6 cm LVPWd: 1.01 0.7-1.1 cm LA Diam: 3.70 2.7-3.8/3.0-4.0 cm LAIDs Index: 2.01 1.5-2.3 cm/m2 LV Mass: 172.33 67-162/88-224 g LV Mass Index: 93.66 43-95/49-115 g/m2 LVOT Diam: 2.30 3.0+(-)1.3 cm 2D Systolic Function EF 4C: 64.70 >55% EF 2C: 54.80 >55% EF BiP: 60.40 >55% Mitral Valve MV Pk E: 0.73 MV PK A: 1.04 MV Decel Time: 168.00 E/A: 0.70 E'Lateral: 10.20 E'Medial: 8.49 E/E' Med: 8.60 E/E' Lat: 7.20 PHT: 49.00 MVA PHT: 4.49 Decel [place]: 4.35 Aortic Valve AoV Pk Kalpesh: 1.35 AoV Mn Kalpesh: 0.87 AoV VTI: 0.25 AoV Pk Grad: 7.00 Aov Mn Grad: 4.00 TED Cont.VTI: 3.56 LVOT LVOT Pk Kalpesh: 1.16 LVOT Mn Kalpesh: 0.72 LVOT VTI: 0.22 LVOT Pk Grad: 5.00 LVOT Mn Grad: 3.00 LVOT Diam: 2.30 LVOT Area: 4.15 Diastolic Function MV Pk E: 0.73 MV Pk A: 1.04 E/A: 0.70 E'Medial: 8.49 E/E' Med: 8.60 E' Laterial: 10.20 E/E' Lat: 7.20 Right Ventricle TAPSE (mm): 23.50 TVS' Kalpesh: 16.00 Tricuspid Valve TR Pk Kalpesh: 2.31 TR Pk Grad: 21.00 RA Press: 3.00 RVSP: 24.00 Great Vessels Aorta Sinus of Valsalva: 3.90 2.0-3.5 cm Ao Asc: 3.90 2.1-3.4 cm Pulmonary Valve PV Pk Kalpesh: 0.88 Peak PV Grad: 3.00 Updated in Other Vendor System with Status of Final Dustin Guerra MD electronically signed on 06/02/2025 3:59:45 PM with status of Final
--- NOTE | 2025-06-02 07:51 | PC.NURSE ---
Assumed care of patient. Pt is A+Ox4, calm and cooperative. Pt has some baseline expressive aphasia. Pt denies any CP or SOB, denies any pain at this time. Pt does have a hx of asthma, cough since yesterday, lungs clear bilat.
--- NOTE | 2025-06-02 09:24 | PHA.MEDREC ---
Addendum entered by Bean Tinoco RPh 06/02/25 10:52: MED REC REVIEWED BY [facility] Original Note: Pharmacy Consult ? Medication Reconciliation Pharmacy has completed the medication reconciliation. Patient was able to name all her medications. Patient states she last had her medications yesterday.
--- NOTE | 2025-06-02 10:29 | MHC.CM.PN ---
IMM 06/02/25, Pt. lives alone, she does not have home health services. She has been to Acute rehab at [facility] early in the year, followed by Thania MURCIA. For DME, she uses a Cane, walker, commode, shower chair. She may need assistance with transport home at [place]. PCP confirmed: Gretchen Fletcher. She has a HCP, her brother Diomedes Fuentes, copy was requested. DCP: home with services, CM to follow for DC needs.
--- NOTE | 2025-06-02 10:42 | HO.PM.IMPN ---
Subjective Subjective Date of Service: 06/02/25 Interval History: headache Physical Exam Exam: Exam: General: AO X 3, no acute distress Resp: CTA bilateral, no accessory muscles used CVS: S1,S2,RRR GI: soft, non tender, non distended Neuro: motor grossly intact, alert Psych: appropriate affect, appropriate insight Vital Signs: Vital Signs: Last Vital Signs Temp 98.5 F 06/02/25 07:49 Pulse 77 06/02/25 07:49 Resp 18 06/02/25 07:49 BP 111/58 L 06/02/25 07:49 Pulse Ox 95 06/02/25 07:49 O2 Del Method Room Air 06/02/25 07:49 BMI result Body Mass Index 32.3 Objective Data Active Medications Acetaminophen (Acetaminophen 325 Mg Tablet) 650 mg PO Q6H PRN PRN Reason: Pain, Mild 1-3,fever,headache Albuterol/Ipratropium (Albuterol/Iprat 2.5/0.5mg 3 Ml Ampul.Neb) 3 ml INHALE Q4H PRN PRN Reason: Shortness of Breath/Wheezing Aspirin (Aspirin Enteric Coated 81 Mg Tablet.Dr) 81 mg PO DAILY [facility] Last Admin: 06/02/25 02:52 Dose: 81 mg Documented By: JESUS Calcium Carbonate (Calcium Carbonate 750 Mg Tab.Chew) 750 mg PO Q4H PRN PRN Reason: Heartburn Sodium Chloride (Ns) 1,000 mls @ 100 mls/hr IVCONT .Q10H [facility] Last Admin: 06/02/25 02:53 Dose: 100 mls/hr Documented By: JESUS Magnesium Hydroxide (Milk Of Magnesia 30 Ml Oral.Susp) 30 ml PO DAILY PRN PRN Reason: Constipation Melatonin (Melatonin 3 Mg Tablet) 6 mg PO BEDTIME PRN PRN Reason: Insomnia Ondansetron HCl (Ondansetron Hcl 4 Mg/2 Ml Vial) 4 mg IVPUSH Q8H PRN PRN Reason: Nausea and Vomiting Polyethylene Glycol (Polyethylene Glycol 3350 17 Gm Powd.Pack) 17 gm PO DAILY PRN PRN Reason: Constipation Senna (Sennosides 8.6 Mg Tablet) 17.2 mg PO BEDTIME [facility] Sodium Chloride (0.9 % Sodium Chloride Flush 3 Ml Syringe) 3 ml IVFLUSH QSHIFT [facility] Last Admin: 06/02/25 07:49 Dose: Not Given Documented By: MARY ANNE Non-Admin Reason: IV Running Labs 06/02/25 05:21 06/02/25 05:21 Labs: Laboratory Results - last 24 hr 06/01/25 06/01/25 06/01/25 18:54 19:02 21:41 MCV 90.8 MCH 30.5 MCHC 33.6 RDW 12.0 Plt Count 145 L MPV 9.9 Immature Gran % (Auto) 0.4 Neut % (Auto) 86.8 H Lymph % (Auto) 5.0 L [place] % (Auto) 7.3 Eos % (Auto) 0.1 Baso % (Auto) 0.4 Lymph # (Auto) 0.4 L [place] # (Auto) 0.6 Eos # (Auto) 0.0 Baso # (Auto) 0.0 Abs Immat Gran (auto) 0.03 Absolute Neuts (auto) 7.4 Absolute Nucleated RBC 0.000 Nucleated RBC % (auto) 0.0 PT INR APTT Anion Gap 12 Estim Creat Clear Calc 71.9 Estimated GFR > 60 Random Glucose 95 Calcium 9.4 Magnesium 1.8 Total Bilirubin 0.5 AST 29 ALT 23 Alkaline Phosphatase 74 Total Creatine Kinase 427 H Total Protein 6.7 Albumin 4.4 Triglycerides Cholesterol LDL Cholesterol, Calc HDL Cholesterol Urine Color Yellow Urine Appearance Clear Urine pH 7.5 Ur Specific [place] 1.010 Urine Protein Negative Urine Glucose (UA) Negative Urine Ketones Trace Urine Blood Small (1+) H Urine Nitrite Negative Ur Leukocyte Esterase Negative Urine RBC 11-20 H Urine WBC 0-5 Ur Squamous Epith Cells 0-2 Urine Bacteria None Seen Hyaline Casts 0-2 Influenza Type A (PCR) NEGATIVE Influenza Type B (PCR) NEGATIVE RSV RNA Qual (PCR) NEGATIVE SARS-CoV-2 RNA (RT-PCR) NEGATIVE 06/02/25 05:21 MCV 91.0 MCH 30.1 MCHC 33.1 RDW 12.5 Plt Count 148 L MPV 10.1 Immature Gran % (Auto) 0.3 Neut % (Auto) 70.0 Lymph % (Auto) 18.3 L [place] % (Auto) 10.7 Eos % (Auto) 0.2 Baso % (Auto) 0.5 Lymph # (Auto) 1.1 L [place] # (Auto) 0.6 Eos # (Auto) 0.0 Baso # (Auto) 0.0 Abs Immat Gran (auto) 0.02 Absolute Neuts (auto) 4.1 Absolute Nucleated RBC 0.000 Nucleated RBC % (auto) 0.0 PT 12.3 INR 1.1 APTT 47.2 H Anion Gap 15 Estim Creat Clear Calc 75.8 Estimated GFR > 60 Random Glucose 91 Calcium 9.1 Magnesium Total Bilirubin AST ALT Alkaline Phosphatase Total Creatine Kinase 602 H Total Protein Albumin Triglycerides 67 Cholesterol 156 LDL Cholesterol, Calc 92 HDL Cholesterol 51 Urine Color Urine Appearance Urine pH Ur Specific [place] Urine Protein Urine Glucose (UA) Urine Ketones Urine Blood Urine Nitrite Ur Leukocyte Esterase Urine RBC Urine WBC Ur Squamous Epith Cells Urine Bacteria Hyaline Casts Influenza Type A (PCR) Influenza Type B (PCR) RSV RNA Qual (PCR) SARS-CoV-2 RNA (RT-PCR) Assessment and Plan (1) Elevated troponin: Status: Acute Plan 61F PMH ANNE on CPAP, Castleman's disease status post surgical removal, hyperlipidemia, alcohol dependence sober 20 years, erosive esophagitis, Zazueta's esophagus, meningioma status post craniotomy and radiation presented after fall and head injury found to have elevated troponin Mechanical fall with head injury Imaging unremarkable PT eval Elevated troponin Disproportionate elevation of CPK Denies chest pain Check echo, Cardiology, aspirin and statin Zazueta's esophagus PPI ANNE CPAP at night DVT prophylaxis-Lovenox Full Code reason for continued hospitalization: Working up elevated troponin Quality Stroke Does the patient have a stroke diagnosis?: No Reason for No Anti-thrombotic by Day Two: N/A - Med Ordered VTE Prior VTE?: No VTE Risk Level:: Medical - moderate - high VTE Device Contraindication: N/A - Device Ordered VTE Drug Contraindication: N/A - Med Ordered
--- NOTE | 2025-06-02 10:51 | P.CONCA_ITS ---
History of Present Illness History of Present Illness Date of Service: 06/02/25 Requesting physician: Kristen Meléndez Consult reason: troponin elevation Chief complaint: fall Narrative: I was consulted to see Brittny in cardiology consultation today for elevated troponins. Patient is a pleasant 69-year-old female with prior history of dysarthria, memory loss as well as balance issues since her meningioma surgery which makes her prone to fall. Patient present in the hospital after such a fall which was accidental down the basement and flight of stairs. She unfortunately hurt her face at the bridge of the nose as well as a right elbow. She has no other pain or significant discomfort. During the fall she had no loss of consciousness. She had no palpitations, chest pain, shortness of breath. Post fall she had no chest pain. She was down on the floor for about hour and a half and was not able to call for help and eventually gradually climbed up the flight of stairs and was able to call for help. During this time Naomi's obviously under lot of emotional as well as physical distress. EKGs was done which showed nonspecific ST-T changes. Troponins were drawn for unclear reasons. However troponins were slightly elevated and subsequent troponin shows further elevation in his rising pattern consistent with myocardial injury. Again she had has no chest pain. Repeat EKGs shows nonspecific ST segment. She got 1 dose of Lovenox. She has no prior history of known vascular disease or coronary artery disease. She attributes to family history of atrial fibrillation but no premature coronary artery disease. She says she quit smoking about 25 years ago and alcohol use many years ago. She does have history of gastritis as well as hiatal hernia and hyperlipidemia. She has remained hemodynamically stable. No symptoms of heart failure. No arrhythmias noted Review of Systems 2 Constitutional: Constitutional: Reports frequent falls Eyes: Eyes: Reports no additional eye complaints Cardiovascular: Cardiovascular: Reports no additional cardiovascular complaints Respiratory: Respiratory: Reports no additional respiratory complaints Gastrointestinal: Gastrointestinal: Reports no additional gastrointestinal complaints Genitourinary: Genitourinary: Reports no additional female genitourinary complaints Integumentary/Breasts: Skin/Breast: Reports system reviewed and no additional complaints, except as docu Neurologic: Reports Abnormal speech present, Reports frequent falls, Reports lack of coordination and Reports memory loss Psychiatric: Psychiatric: Reports memory loss Endocrine: Endocrine: Reports no additional endocrine complaints Hematologic/Lymphatic: Hematologic/Lymphatic: Reports no additional hematologic/lymphatic complaints [facility] Past Medical History Medical History Tobacco use Alcohol use disorder History of fall Gastritis Erosive esophagitis Hiatal hernia Diverticulosis Meningioma, cerebral Castlemans disease Hyperlipidemia H/O: UGI bleed ANNE on CPAP Asthma Barretts esophagus GERD (gastroesophageal reflux disease) ETOH abuse Depression Surgical History Surgical History Status post brain surgery Hx of lymph node excision [place] teeth extracted History of lumpectomy of left breast History of back surgery History of excision of tumor of brain meninges Hx of colonoscopy History of esophagogastroduodenoscopy (EGD) Social History Social History Are you a primary home care specialist to a significant other at home: No Do you presently have visiting nurse or other home services: No Alcohol intake: former Comment: Quit 20 years ago Patient Tobacco Use Status: Former Tobacco user Tobacco use type: Cigarette Smoked in Last 30 Days: No Advance Directives: No Advance Directives Information Provided: No Do you have a plan to hurt others: No Plan Patient : No Travel History Ebola Risk: Travel/Contact With Anyone From Affected Area/s: No Has Patient Experienced Ebola Symptoms: No Meds Allergies Allergy/AdvReac Type Severity Reaction Status Date / Time cefdinir (From OMNICEF) Allergy Unknown HIVES Verified 06/01/25 18:18 gatifloxacin (From TEQUIN) Allergy Unknown HIVES Verified 06/01/25 18:18 Sulfa (Sulfonamide Allergy Unknown HIVES Verified 06/01/25 18:18 Antibiotics) (SULFA(SULFONAMIDE ANTIBIOTICS)) Active Medications: Current Medications Acetaminophen (Acetaminophen 325 Mg Tablet) 650 mg PO Q6H PRN PRN Reason: Pain, Mild 1-3,fever,headache Albuterol/Ipratropium (Albuterol/Iprat 2.5/0.5mg 3 Ml Ampul.Neb) 3 ml INHALE Q4H PRN PRN Reason: Shortness of Breath/Wheezing Aspirin (Aspirin Enteric Coated 81 Mg Tablet.) 81 mg PO DAILY DINAH Last Admin: 06/02/25 02:52 Dose: 81 mg Atorvastatin Calcium (Atorvastatin Calcium 40 Mg Tablet) 40 mg PO BEDTIME [facility] Bupropion HCl (Bupropion Hcl Xl 150 Mg Tab.Er.24h) 150 mg PO DAILY [facility] Calcium Carbonate (Calcium Carbonate 750 Mg Tab.Chew) 750 mg PO Q4H PRN PRN Reason: Heartburn Fluoxetine HCl (Fluoxetine Hcl 20 Mg Capsule) 40 mg PO DAILY [facility] Sodium Chloride (Ns) 1,000 mls @ 100 mls/hr IVCONT .Q10H [facility] Last Admin: 06/02/25 02:53 Dose: 100 mls/hr Levetiracetam (Levetiracetam 500 Mg Tablet) 500 mg PO BID [facility] Magnesium Hydroxide (Milk Of Magnesia 30 Ml Oral.Susp) 30 ml PO DAILY PRN PRN Reason: Constipation Melatonin (Melatonin 3 Mg Tablet) 6 mg PO BEDTIME PRN PRN Reason: Insomnia Multivitamins/Vitamin C (Multivitamin Tablet) 1 tab PO DAILY [facility] Omeprazole (Omeprazole 20 Mg Capsule.Dr) 20 mg PO DAILY@0630 [facility] Ondansetron HCl (Ondansetron Hcl 4 Mg/2 Ml Vial) 4 mg IVPUSH Q8H PRN PRN Reason: Nausea and Vomiting Polyethylene Glycol (Polyethylene Glycol 3350 17 Gm Powd.Pack) 17 gm PO DAILY PRN PRN Reason: Constipation Senna (Sennosides 8.6 Mg Tablet) 17.2 mg PO BEDTIME [facility] Sodium Chloride (0.9 % Sodium Chloride Flush 3 Ml Syringe) 3 ml IVFLUSH QSHIFT [facility] Last Admin: 06/02/25 07:49 Dose: Not Given Home Medications ?Medication ?Instructions ?Recorded ?Confirmed ?Last Taken ?Type fluoxetine 40 mg capsule 40 mg PO DAILY 03/23/2105/1506/01/25 History multivitamin 1 tab PO DAILY 03/23/2105/1506/01/25 History rosuvastatin 10 mg tablet 10 mg PO BEDTIME 03/23/2106/01/25 History bupropion HCl 150 mg tablet,12 hr 150 mg PO DAILY 05/1506/02/25 06/01/25 History sustained-release levetiracetam 500 mg tablet 500 mg PO BID 06/02/2506/01/25 History omeprazole 20 mg capsule,delayed 20 mg PO DAILY@0630 0 06/02/25 06/02/25 06/01/25 History release Physical Exam 2 Vital Signs: Vital Signs: Last Vital Signs Temp 98.5 F 06/02/25 07:49 Pulse 77 06/02/25 07:49 Resp 18 06/02/25 07:49 BP 111/58 L 06/02/25 07:49 Pulse Ox 95 06/02/25 07:49 O2 Del Method Room Air 06/02/25 07:49 BMI result Body Mass Index 32.3 Const: General: cooperative, comfortable, no acute distress, alert and awake Nutritional Appearance: average body habitus Orientation/consciousness: p atient oriented x3 Limitations: no limitations HEENT: Head: Yes normocephalic and Yes atraumatic Neck: Neck: Yes trachea midline, Yes supple and Yes no JVD Resp: Effort & Inspection: normal respiratory effort Auscultation: clear to auscultation bilaterally Cardio: Jugular venous distension: no JVD Palpation: normal PMI Rate: r egular rate Rhythm: regular rhythm Heart sounds: S1 normal heart sound present, S2 normal heart sound present, no click, no gallops and no murmurs GI: Auscultation: normal bowel sounds Skin: General skin exam: no rashes or lesions noted Neuro: General: patient oriented x3 and no focal motor deficits Speech: A bnormal speech present Extrem: General: Yes no pedal edema Psych: Appearance: grossly normal Objective Labs and Meds 06/02/25 05:21 06/02/25 05:21 Lab results: Laboratory Results - last 24 hr 06/01/25 06/01/25 06/01/25 18:54 19:02 21:41 WBC 8.6 RBC 4.33 Hgb 13.2 Hct 39.3 MCV 90.8 MCH 30.5 MCHC 33.6 RDW 12.0 Plt Count 145 L MPV 9.9 Immature Gran % (Auto) 0.4 Neut % (Auto) 86.8 H Lymph % (Auto) 5.0 L Henderson % (Auto) 7.3 Eos % (Auto) 0.1 Baso % (Auto) 0.4 Lymph # (Auto) 0.4 L Henderson # (Auto) 0.6 Eos # (Auto) 0.0 Baso # (Auto) 0.0 Abs Immat Gran (auto) 0.03 Absolute Neuts (auto) 7.4 Absolute Nucleated RBC 0.000 Nucleated RBC % (auto) 0.0 PT INR APTT Sodium 139 Potassium 4.3 Chloride 106 Carbon Dioxide 25 Anion Gap 12 BUN 11 Creatinine 0.77 Estim Creat Clear Calc 71.9 Estimated GFR > 60 Random Glucose 95 Calcium 9.4 Magnesium 1.8 Total Bilirubin 0.5 AST 29 ALT 23 Alkaline Phosphatase 74 Total Creatine Kinase 427 H Troponin I High Sens 64.0 H* 193.8 H* D Total Protein 6.7 Albumin 4.4 Triglycerides Cholesterol LDL Cholesterol, Calc HDL Cholesterol Urine Color Yellow Urine Appearance Clear Urine pH 7.5 Ur Specific [place] 1.010 Urine Protein Negative Urine Glucose (UA) Negative Urine Ketones Trace Urine Blood Small (1+) H Urine Nitrite Negative Ur Leukocyte Esterase Negative Urine RBC 11-20 H Urine WBC 0-5 Ur Squamous Epith Cells 0-2 Urine Bacteria None Seen Hyaline Casts 0-2 Influenza Type A (PCR) NEGATIVE Influenza Type B (PCR) NEGATIVE RSV RNA Qual (PCR) NEGATIVE SARS-CoV-2 RNA (RT-PCR) NEGATIVE 06/02/25 06/02/25 00:08 05:21 WBC 5.9 RBC 4.12 L Hgb 12.4 Hct 37.5 MCV 91.0 MCH 30.1 MCHC 33.1 RDW 12.5 Plt Count 148 L MPV 10.1 Immature Gran % (Auto) 0.3 Neut % (Auto) 70.0 Lymph % (Auto) 18.3 L Henderson % (Auto) 10.7 Eos % (Auto) 0.2 Baso % (Auto) 0.5 Lymph # (Auto) 1.1 L Henderson # (Auto) 0.6 Eos # (Auto) 0.0 Baso # (Auto) 0.0 Abs Immat Gran (auto) 0.02 Absolute Neuts (auto) 4.1 Absolute Nucleated RBC 0.000 Nucleated RBC % (auto) 0.0 PT 12.3 INR 1.1 APTT 47.2 H Sodium 141 Potassium 3.7 Chloride 109 H Carbon Dioxide 21 L Anion Gap 15 BUN 9 Creatinine 0.73 Estim Creat Clear Calc 75.8 Estimated GFR > 60 Random Glucose 91 Calcium 9.1 Magnesium Total Bilirubin AST ALT Alkaline Phosphatase Total Creatine Kinase 602 H Troponin I High Sens 324.2 H* D 276.0 H* Total Protein Albumin Triglycerides 67 Cholesterol 156 LDL Cholesterol, Calc 92 HDL Cholesterol 51 Urine Color Urine Appearance Urine pH Ur Specific Hague Urine Protein Urine Glucose (UA) Urine Ketones Urine Blood Urine Nitrite Ur Leukocyte Esterase Urine RBC Urine WBC Ur Squamous Epith Cells Urine Bacteria Hyaline Casts Influenza Type A (PCR) Influenza Type B (PCR) RSV RNA Qual (PCR) SARS-CoV-2 RNA (RT-PCR) Assessment and Plan (1) Myocardial injury: Status: Acute Patient with troponin rise and fall consistent with myocardial injury. Potential differential diagnose include stress-induced cardiomyopathy AKA takotsubo cardiomyopathy related to her physical as well as emotional distress after fall. Possible other etiology includes secondary NSTEMI related to underlying coronary disease and significant emotional distress causing myocardial injury. Primary acute coronary syndrome is unlikely. She does have subtle EKG changes. I would suggest her to undergo an echocardiogram. If this shows a single-vessel coronary significant wall motion abnormality may need cardiac catheterization otherwise I would manage this conservatively with aspirin, statins and metoprolol therapy. Mechanism of stress-induced cardiomyopathy was discussed in details. May need an outpatient myocardial perfusion imaging based on the echocardiogram findings. Will follow up after echocardiogram. Completely normal can be discharged home later today on medical therapy. Fall prevention strategies need to be pursued Procedures Date of Service Date of Service: 06/02/25
--- NOTE | 2025-06-02 11:29 | P.CDIM_ITS ---
PROVIDER RESPONSE TEXT: To clarify, the appropriate diagnosis supported by the clinical indicators: Chronic QUERY TEXT: PHYSICIAN'S DOCUMENTATION REQUEST Date of Query: 06/02/2025 11:19 AM EDT Patient Name: KRIS PALACIO Admit Date: 06/02/2025 Dear Dario Pradhan MD, A review of the medical record indicates additional documentation may be needed. Please review below and update the documentation accordingly. Clinical Indicators: H&P dated 06/02/25 - Gastritis/Zazueta's esophagus/erosive esophagitis: Patient states she takes Omeprazole at home. Avoid NSAIDS Clarify which of the following accurately represents the acuity of the Gastritis: Possible options might include: Acute Chronic Viral Nervous Spastic Atrophic Superficial chronic Other (explain) Clinically unable to determine (explain) Thank you, Aida Rubi, CCS, CDIS Use of terms such as suspected, likely, concern for, or probable (associated with a specific diagnosis that is being evaluated, monitored, or treated as if it exists) are acceptable and can be coded in the inpatient setting, when documented at the time of discharge. Please use your independent medical judgment in providing your response. THIS QUERY IS PART OF THE PERMANENT MEDICAL RECORD
[2025-06-02 12:17] LABS: B Type Natriuretic Peptide 79 pg/mL (<100)
[2025-06-02] MEDS: 0.9 % Sodium Chloride Flush 3 ML SYRINGE IVFLUSH (19:40)
[2025-06-03 02:01] LABS: INTERNATIONAL NORM RATIO 1.0 (0.9-1.1); Prothrombin Time 11.8 SEC (10.9-12.4)
[2025-06-03 03:57] VITALS: BP 113/72; PULSE 70; RESP 17; TEMP 37.1; O2SAT 97
[2025-06-03 07:14] VITALS: BP 130/60; PULSE 77; RESP 20; TEMP 36.9; O2SAT 96
[2025-06-03 08:00] LABS: Hematocrit 36.1 % (37.0-47.0); Hemoglobin 11.9 g/dl (12.0-16.0); Mean Corpuscular HGB Conc 33.0 g/dl (31.0-35.0); Mean Corpuscular Hemoglobin 30.4 pg (27.0-33.0); Mean Corpuscular Volume 92.1 fL (80.0-98.0); NRBC Abs Auto 0.000 X10*3/uL (0.0-0.012); NRBC Pct Auto 0.0 /100WBC (0.0-0.2); Platelet Count 150 X10*3/uL (160-400); Red Blood Count 3.92 X10*6/uL (4.20-5.50); White Blood Count 4.4 X10*3/uL (4.8-10.8)
--- NOTE | 2025-06-03 08:22 | MHC.CM.PN ---
PT is recommending Acute Rehab and CM will continue to follow.
[2025-06-03] MEDS: buPROPion HCl XL 150 MG TAB.ER.24H PO (08:37)
[2025-06-03] MEDS: Aspirin Enteric Coated 81 MG TABLET.DR PO (08:37)
[2025-06-03] MEDS: 0.9 % Sodium Chloride Flush 3 ML SYRINGE IVFLUSH (08:38)
--- NOTE | 2025-06-03 10:56 | PM.PNCARD ---
Subjective Subjective Date of Service: 06/03/25 Principal diagnosis: Myocardial injury Interval history: Patient had echocardiogram yesterday which showed preserved LV ejection fraction with wall motion abnormality in the RCA/circumflex territory. Patient has no chest pain still. Hemodynamically stable at this point time. Review of Systems Review of Systems Yes all other systems are reviewed and are negative Reports Abnormal speech present Physical Exam Vital Signs: Last Vital Signs Temp 98.5 F 06/03/25 07:14 Pulse 77 06/03/25 07:14 Resp 20 06/03/25 07:14 BP 130/60 06/03/25 07:14 Pulse Ox 96 06/03/25 07:14 O2 Del Method Room Air 06/03/25 07:14 BMI result Body Mass Index 32.3 Const General: cooperative, comfortable, no acute distress, alert and awake Nutritional Appearance: average body habitus Orientation/consciousness: patient oriented x3 Limitations: no limitations HEENT Head: Yes normocephalic and Yes atraumatic Neck Neck: Yes trachea midline, Yes supple and Yes no JVD Resp Effort & Inspection: normal respiratory effort Auscultation: clear to auscultation bilaterally Cardio Jugular venous distension: no JVD Palpation: normal PMI Rate: regular rate Rhythm: regular rhythm Heart sounds: S1 normal heart sound present, S2 normal heart sound present, no click, no gallops and no murmurs GI Auscultation: normal bowel sounds Skin General skin exam: no rashes or lesions noted Neuro General: patient oriented x3 and no focal motor deficits Speech: Abnormal speech present Extrem General: Yes no pedal edema Psych Appearance: grossly normal Objective Labs and Meds 06/03/25 07:22 06/02/25 05:21 Lab results: Laboratory Results - last 24 hr 06/02/25 06/03/25 06/03/25 05:21 01:44 07:22 WBC 4.4 L RBC 3.92 L Hgb 11.9 L Hct 36.1 L MCV 92.1 MCH 30.4 MCHC 33.0 RDW 12.6 Plt Count 150 L MPV 10.3 Absolute Nucleated RBC 0.000 Nucleated RBC % (auto) 0.0 PT 11.8 INR 1.0 B-Natriuretic Peptide 79 Progress Note: A&P Assessment and plan (1) Myocardial injury: Status: Acute Assessment and Plan: Myocardial injury most suggestive of secondary NSTEMI at this point time based on the echocardiogram findings. We discussed about management. Given that she has no symptoms and no significant EKG changes at this point time we discussed whether we can pursue invasive cardiac catheterization versus noninvasive testing as outpatient. She once to pursue noninvasive testing. Which is inappropriate course of action. Continue with aspirin, statins and metoprolol therapy. High-dose statins with the atorvastatin 80 mg daily. Outpatient myocardial perfusion imaging can be pursued. She can be discharged from cardiac perspective. Will set up for outpatient follow-up Time Spent With Patient Time: Total time managing care of this patient today ____ minutes. Progress Note: Quality Stroke Does the patient have a stroke diagnosis?: No Reason for No Anti-thrombotic by Day Two: N/A - Med Ordered Procedures Date of Service Date of Service: 06/03/25
[2025-06-03 10:57] VITALS: BP 107/61; PULSE 75; RESP 20; TEMP 36.6; O2SAT 97
[2025-06-03 11:18] VITALS: PULSE 88
--- NOTE | 2025-06-03 12:06 | P.DS_ITS ---
DS: Providers Provider Date of Service: 06/03/25 Date of admission: 06/02/25 01:35 Date of discharge: 06/03/25 Primary care physician: Gretchen Fletcher NP Consults: 06/02/25 01:40 Consult to Cardiology Routine Consulting Provider: [facility] Reason for consultation: elevated troponin Has provider been notified: No DS: Diagnosis Discharge Diagnosis (1) Myocardial injury: Status: Acute DS: Summary Hospital Course Hospital Course: 61-year-old female with past medical history hyperlipidemia, ANNE on CPAP, Castelman's disease with surgical removal, alcohol use disorder sober for 20 years, former tobacco use with cessation 20 years prior, erosive esophagitis, gastritis, Barretts esophagus, diverticulosis, moderate hiatal hernia, internal hemorrhoids, 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 Roper neurologist at [facility] with dysarthria and expressive aphasia and balance issues presents to the ED via ambulance status post mechanical fall unwitnessed. Patient states she was in her kitchen which has a chronic opening to the basement stairs with no door, and while walking in the kitchen patient suddenly lost her balance and literally fell down the basement stairs that are carpeted. Patient believes she hit her nose on the wall and was on the floor for approximately 1.5 hours before she had enough strength to slowly get up and walk up the flight of stairs. Patient was wearing a Life Alert device which did not work properly. Patient was able to call for help at the top of the stairs. Patient denies any loss of consciousness but stated at the bottom of the stairs at the end of the fall she felt sweaty and her palms were also sweaty. Patient denied any chest pain throughout this duration or shortness of breath. Patient denies being on any blood thinners and can not take NSAIDS due to gastritis. Pt denies hx of diabetes. Pt currently only has mild ROSALES in the frontal area. Workup in the ED identified a CT of the head and CT of the spine negative for any acute findings.Pt's CK elevated 427. Troponns continued to rise, 64 - 193.8 - 324.2. ECG NSR, LAD, Nonspecific ST abnormality. Pt denies chest pain or SOB. Pt has had a stress test in the past and results were normal. Pt has no loss of ROM or strength in upper and lower extremities and pt is not complaining of pain with breathing, rib pain or back pain. Pt has no skin breakdown except for small abrasion on the bridge of the nose. Pt being admitted for elevated troponins, PT eval status post fall. Patient currently does live alone, drives and is independent with all aspects of care. Patient has had PT in the past to help with balance issues related to her previous brain surgeries. Patient does use a walker when at home. Patient does wear appropriate footwear when ambulating. Hospital Course Admitted to telemetry where monitor failed to demonstrate any dysrhythmias. Seen by Cardiology: Echocardiogram demonstrated preserved LV function with wall motion abnormalities in the RCA/circumflex territory.Myocardial injury most suggestive of secondary NSTEMI at this point time based on the echocardiogram findings. We discussed about management. Given that she has no symptoms and no significant EKG changes at this point time we discussed whether we can pursue invasive cardiac catheterization versus noninvasive testing as outpatient. She once to pursue noninvasive testing. Which is inappropriate course of action. Continue with aspirin, statins and metoprolol therapy. High-dose statins with the atorvastatin 80 mg daily. Outpatient myocardial perfusion imaging can be pursued. She can be discharged from cardiac perspective. Will set up for outpatient follow-up Time Attestation Discharge Coordination Time (in mins): 35 Quality: Safe Use of Opioids Does Pt have an Active Cancer Diagnosis on the Problem List?: No Quality: Stroke Does the patient have a stroke diagnosis?: No Physical Exam Vital Signs: Vital Signs: Last Vital Signs Temp 97.9 F 06/03/25 10:57 Pulse 88 06/03/25 11:18 Resp 20 06/03/25 10:57 BP 107/61 06/03/25 10:57 Pulse Ox 97 06/03/25 10:57 O2 Del Method Room Air 06/03/25 10:57 BMI result Body Mass Index 32.3 Const: Other: No acute distress Resp: Other: Clear to auscultation bilaterally no rales rhonchi or wheezes Cardio: Other: No S4; positive S1-S2; no S3 murmurs rubs or gallops GI: Other: Soft nontender nondistended normoactive bowel sounds Extrem: Other: No edema bilaterally DS: Data Data Completed and Pending Labs on day of discharge: Laboratory Results - last 24 hr 06/02/25 06/03/25 06/03/25 05:21 01:44 07:22 WBC 4.4 L RBC 3.92 L Hgb 11.9 L Hct 36.1 L MCV 92.1 MCH 30.4 MCHC 33.0 RDW 12.6 Plt Count 150 L MPV 10.3 Absolute Nucleated RBC 0.000 Nucleated RBC % (auto) 0.0 PT 11.8 INR 1.0 B-Natriuretic Peptide 79 Discharge Plan Discharge Anticipated Discharge Date/Time: 06/03/25 11:58 Patient Disposition: Home, Self-Care Discharge Diagnosis: fall Referrals: Gretchen Fletcher NP [Primary Care Provider, Internal Medicine] - 1 Week Discharge Medications: New atorvastatin [Lipitor] 40 mg tablet 40 mg PO QPM Qty: 30 0RF metoprolol succinate 25 mg tablet extended release 24 hr 25 mg PO DAILY Qty: 30 0RF Continued multivitamin Tablet 1 tab PO DAILY fluoxetine 40 mg Capsule 40 mg PO DAILY levetiracetam 500 mg tablet 500 mg PO BID omeprazole 20 mg capsule,delayed release(DR/EC) 20 mg PO DAILY@0630 bupropion HCl 150 mg tablet sustained-release 12 hr 150 mg PO DAILY Discontinued rosuvastatin 10 mg Tablet 10 mg PO BEDTIME Discharge Orders: Discharge Order (Routine); Ordered 06/03/25 Ordered By: Jeromy Hill Diet: Advance to usual diet Activity on Discharge: As tolerated Stand Alone Forms: Patient Portal Discharge page Print Language: Dutch Care Plan Goals: Resume all meds as taken prior to hospital; rosuvastatin has been switched in favor of Lipitor and metoprolol 25 mg daily has been added to your regimen Health Concerns: Utilize ambulatory devices as needed Plan of Treatment: Follow up with the PCP next available. Cardiology will call you for follow up appointment Assessment: See discharge summary
--- NOTE | 2025-06-03 12:10 | MHC.CM.PN ---
Patient has been medically cleared for dc to home/self care (Patient declined rehab and vna)via [facility] today at 2:15 PM (RN & MD are aware).Last IMM was addressed yesterday.
== END 2025-06-03 14:10 | disposition home or self-care (01) | DRG 557 ==
LOC: HO.ED 06-02 01:53 → HO.EDOVER 06-02 03:00 → HO.IMC 06-02 16:49
PROVIDERS: Nurse Practitioner Family; Admitting Provider Student in an Organized Health Care Education/Training Program; Emergency Provider Emergency Medicine; PCP Nurse Practitioner Family; Visit Provider Hospitalist
DX: M62.82 Rhabdomyolysis (principal); I21.A1 Myocardial infarction type 2; E78.5 Hyperlipidemia, unspecified; G47.33 Obstructive sleep apnea (adult) (pediatric); K22.70 Barrett's esophagus without dysplasia; W10.9XXA Fall (on) (from) unspecified stairs and steps, initial encounter; K29.50 Unspecified chronic gastritis without bleeding; F10.91 Alcohol use, unspecified, in remission; Z87.891 Personal history of nicotine dependence; Z79.899 Other long term (current) drug therapy
CPT/HCPCS: 36415; 70450; 72125; 80048; 80053; 80061; 81001; 82550; 83735; 83880; 84484; 85025; 85027; 85610; 85730; 87637; 93005; 93306; 97116; 97162; 99285; J1650; Q9957

== ENCOUNTER → 2025-06-01 18:35 | Outpatient (BNV) | payer MEDICARE, OTHER, SELFPAY | PROVIDERS: Admitting Provider Student in an Organized Health Care Education/Training Program; Emergency Provider Emergency Medicine; PCP Nurse Practitioner Family; Visit Provider Internal Medicine Cardiovascular Disease | DX: R94.31 Abnormal electrocardiogram [ECG] [EKG] (principal); W19.XXXA Unspecified fall, initial encounter | CPT/HCPCS: 93010 ==

== ENCOUNTER → 2025-06-01 19:32 | Outpatient (BNV) | payer MEDICARE, OTHER, SELFPAY | PROVIDERS: Emergency Provider Emergency Medicine; PCP Nurse Practitioner Family; Visit Provider Student in an Organized Health Care Education/Training Program | DX: M54.2 Cervicalgia (principal); R51.9 Headache, unspecified | CPT/HCPCS: 70450; 72125 ==

== ENCOUNTER → 2025-06-02 01:35 | Outpatient (BNV) | payer MEDICARE, OTHER, SELFPAY | PROVIDERS: Admitting Provider Student in an Organized Health Care Education/Training Program; Emergency Provider Emergency Medicine; PCP Nurse Practitioner Family; Visit Provider Internal Medicine Cardiovascular Disease | DX: I5A Non-ischemic myocardial injury (non-traumatic) (principal); I34.0 Nonrheumatic mitral (valve) insufficiency; I51.89 Other ill-defined heart diseases | CPT/HCPCS: 93010; 93306; 99222; 99233 ==

== ENCOUNTER → 2025-06-02 01:35 | Outpatient (BNV) | payer MEDICARE, OTHER, SELFPAY | PROVIDERS: Admitting Provider Student in an Organized Health Care Education/Training Program; Emergency Provider Emergency Medicine; PCP Nurse Practitioner Family; Visit Provider Nurse Practitioner Family | DX: R79.89 Other specified abnormal findings of blood chemistry (principal); W19.XXXA Unspecified fall, initial encounter | CPT/HCPCS: 99223; 99239; 99499 ==

== ENCOUNTER → 2025-07-24 10:00 | Outpatient (REF) | payer MEDICARE, OTHER, SELFPAY ==
--- NOTE | ~2025-07-24 | NM_ITS ---
Lexiscan Myocardial perfusion study Indication: Abnormal cardiac markers to evaluate for myocardial ischemia with multiple risk factors Technique: The patient was brought in for a Lexiscan perfusion study on 07/24/2025 and was injected 0.4 mg of Lexiscan intravenously. Within a minute of this injection 25 mCi of sestamibi was given intravenously. Images were obtained using the SPECT gamma camera interlaced with the gating device. Images were obtained in supine position. Resting perfusion study was performed on 07/28/2025. Patient was administered 25 mCi of sestamibi intravenously at rest. Images were then obtained in supine position. Images obtained without without CT attenuation. Total DLP 76 mGy-cm Images were processed with the software and compared side to side in short axis, horizontal long axis and vertical long axis views. Findings: The stress perfusion study showed nonattenuated images show minimal thinning of the distal lateral wall of the LV myocardium with minimal thinning of the apex otherwise normal uptake of radiotracer in all segments of the LV myocardium. Attenuated corrected images show normal uptake of radiotracer in all segments of the LV myocardium. The gated study shows normal LV systolic function with calculated LVEF of 57%. LV cavity is normal in size. The gated study shows normal systolic wall thickening and contraction of segments. Resting study shows attenuated corrected images show mildly reduced uptake in the apex of the LV myocardium. Nonattenuated images show moderately reduced uptake in the lateral wall of the LV myocardium.. Gating at rest reveals normal systolic wall motion with ejection fraction at 54%. The findings are consistent with likely normal myocardial perfusion. NM/NM cardiolite stress test Impression: 1. Myocardial perfusion imaging study shows likely normal myocardial perfusion 2. Gated LVEF is 57% 3. Transient ischemic dilatation not present Nondiagnostic changes on EKG. Electronically signed by: Dustin Guerra MD 07/28/2025 12:28 PM EDT
--- NOTE | 2025-07-24 10:03 | CA_ITS ---
Acquisition Time: 2025-07-24 10:08:24 Total Exercise Time: 00:02:00 Test Indications: NSTEMI Medications: METOPROLOL ATROVASTATIN Protocol: LEXISCAN Max HR: 88 BPM 58% of Pred: 151 BPM Max BP: 116/68 mmHG Max Work Load: 1.0 METS Pharmacological stress test with Lexiscan injection, while sitting and kicking her legs, with mild sob, without arrythmia, with normotensive response to injection, with nondiagnostic for ischemia. In recovery she reported shortness of breath, nausea and leg fatigue and was treated with Aminophylline 75mg IVP to reverse Lexiscan with resolution of symptoms. Nuclear images pending. Test reviewed with Dr Guerra. Referred By: Dustin Guerra Electronically Signed By: ANAIS SIBLEY
== END ==
LOC: HO.CARD 10:00
PROVIDERS: PCP Nurse Practitioner Family; Visit Provider Internal Medicine Cardiovascular Disease
DX: I5A Non-ischemic myocardial injury (non-traumatic) (principal); R79.89 Other specified abnormal findings of blood chemistry; Z91.81 History of falling
CPT/HCPCS: 78452; 93017; A9500; J0280; J2785

== ENCOUNTER → 2025-07-24 10:03 | Outpatient (BNV) | payer MEDICARE, OTHER, SELFPAY | PROVIDERS: PCP Nurse Practitioner Family; Visit Provider Nurse Practitioner Family | DX: R06.02 Shortness of breath (principal) | CPT/HCPCS: 78452; 93016; 93018 ==

== ENCOUNTER 2025-08-13 14:48 | Outpatient (AMB) | payer MEDICARE, OTHER, SELFPAY ==
--- NOTE | 2025-08-13 14:54 | A.OFFVIS_ITS ---
Vital Signs 08/13/25 14:55 Height 5 ft 6 in Weight 161 lb 13.109 oz BMI 26.1 BP 108/72 Blood Pressure Location Lt brachial Position Sitting Pulse 65 Pulse Source Pulse Oximeter Intake Visit Reasons: Follow up after Testing (NS) Surgical Instrument Maker Required: No Allergies cefdinir (From OMNICEF) Allergy (Unknown, Verified 08/13/25 15:00) HIVES gatifloxacin (From TEQUIN) Allergy (Unknown, Verified 08/13/25 15:00) HIVES Sulfa (Sulfonamide Antibiotics) (SULFA(SULFONAMIDE ANTIBIOTICS)) Allergy (Unknown, Verified 08/13/25 15:00) HIVES atorvastatin Adverse Reaction (Intermediate, Verified 08/13/25 15:00) Myalgia Medication List - Last Reconciled 08/13/25 by MINNA Patel aspirin 81 mg PO DAILY bupropion HCl SR 150 mg PO DAILY fluoxetine 40 mg PO DAILY levetiracetam 500 mg PO BID metoprolol succinate ER 25 mg PO DAILY multivitamin 1 tab PO DAILY omeprazole 20 mg PO DAILY@0630 rosuvastatin 20 mg PO DAILY HPI HPI Follow up after Testing (NS): Details: Brittny is a 70-year-old female with past medical history of smoking, hyperlipidemia, GERD, meningioma surgery 1 year ago with residual balance and memory issues who was recently admitted to [facility] after having a fall down the stairs at home. She was on the floor for 1.5 hours before crawling up the stairs to get help. She did have elevated troponins with rise consistent with myocardial injury. An echocardiogram did show normal EF with possible wall motion abnormality. Nuclear stress test was normal. She was put on aspirin, statin and metoprolol and now presents for follow-up. Today she reports she has been doing well since her hospital discharge. She has had no recurrent falls. She has issues with unsteadiness with ambulation and uses a cane. No chest discomfort at rest or with activity. No heart palpitations, lightheadedness, presyncope, syncope. No shortness of breath, PND, orthopnea or edema. She reports having a prior diagnosis of sleep apnea on sleep study years ago. She says she was not given a mask and just sleeps on her side. She is compliant with her meds admits to being mostly sedentary. PFSH Medical History Fall Tobacco use Alcohol use disorder History of fall Gastritis Erosive esophagitis Hiatal hernia Diverticulosis Meningioma, cerebral Castlemans disease Hyperlipidemia H/O: UGI bleed ANNE on CPAP Asthma Barretts esophagus GERD (gastroesophageal reflux disease) ETOH abuse Depression Surgical History Status post brain surgery Hx of lymph node excision [place] teeth extracted History of lumpectomy of left breast History of back surgery History of excision of tumor of brain meninges Hx of colonoscopy History of esophagogastroduodenoscopy (EGD) Social History Household Members: None Housing: House Are you a primary assisted living care manager to a significant other at home: No Do you presently have visiting nurse or other home services: Yes (PT, Speech, and nurse services periodically) Alcohol intake: former Comment: Quit 20 years ago Patient Tobacco Use Status: Former Tobacco user Tobacco use type: Cigarette Review of Systems Const All systems reviewed & are unremarkable except as noted in HPI and below ENT Denies dizziness Card Denies chest pain, Denies chest pain at rest, Denies chest pain with activity, Denies rapid heart rate, Denies pedal edema, Denies edema, Denies leg edema, Denies lightheadedness, Denies palpitations, Denies dyspnea, Denies dyspnea on exertion and Denies orthopnea Resp Denies cough, Denies dyspnea and Denies dyspnea on exertion GI Denies hematochezia and Denies change in stool character Musc Reports abnormal gait (uses cane, has unsteadiness), Denies limited range of motion, Denies muscle cramps, Denies muscle weakness, Denies numbness, Denies radiating pain into limb, Denies stiffness and Denies tingling Neuro Reports abnormal gait (uses cane, has unsteadiness), Denies dizziness, Denies numbness and Denies tingling Endo Denies palpitations Physical Exam Vital Signs: Last Vital Signs Pulse 65 08/13/25 14:55 BP 108/72 08/13/25 14:55 BMI result Body Mass Index 26.1 Const General: cooperative, healthy appearing, comfortable and no acute distress Orientation/consciousness: patient oriented x3 Neck Neck: Yes normal visual inspection and Yes no JVD Resp Effort & Inspection: normal respiratory effort Auscultation: clear to auscultation bilaterally, no rales, no rhonchi and no wheezes Cardio Rate: regular rate Rhythm: regular rhythm Heart sounds: S1 normal heart sound present, S2 normal heart sound present, no gallops, no murmurs and no rubs Neuro General: patient oriented x3 Extrem General: Yes normal to inspection, No no pedal edema and No calf tenderness Psych Appearance: grossly normal Mental Status: mental status grossly normal Speech and movement: Normal speech and movement present Assessment & Plan Assessment & Plan (1) Elevated troponin: Code(s): R79.89 - Other specified abnormal findings of blood chemistry Category: Medical Plan: Recent [place] [facility] [place] troponins which were elevated with trend for secondary NSTEMI versus takotsubo cardiomyopathy. EKG showed normal sinus rhythm, nonspecific ST abnormality, rate 94. Echocardiogram 06/02/2025 showed EF 60-65%, grade 1 diastolic dysfunction, possible basal inferior and inferior lateral wall motion abnormality, [id number] AR, ascending aorta 3.9 cm. Pharmacological nuclear stress test done 07/24/2025 showing normal myocardial perfusion imaging. Test results reviewed with her in detail. Currently asymptomatic. Offered reassurance that heart function is good however nonobstructive coronary artery disease not ruled out. For this reason: Will have her continue daily aspirin. Continue rosuvastatin, ideal LDL goal less than 100. Continue metoprolol. Cardiology follow-up 6 months, sooner if needed. (2) Stress-induced cardiomyopathy: Code(s): I51.81 - Takotsubo syndrome Category: Medical Plan: She may have had a mild degree of stress-induced cardiomyopathy in the setting of her fall. Currently asymptomatic. (3) Hyperlipidemia: Code(s): E78.5 - Hyperlipidemia, unspecified Category: Medical Plan: LDL goal less than 100. Continue rosuvastatin. Will update labs in the near future. (4) Hospital discharge follow-up: Code(s): Z09 - Encounter for follow-up examination after completed treatment for conditions other than malignant neoplasm Category: Medical Plan: Hospital records reviewed. Plan Time spent on chart review, documentation, interview and assessment. Orders: Orders Comprehensive Met. Panel Today E78.5 - Hyperlipidemia, unspecified, I51.81 - Takotsubo syndrome Lipid Panel Today E78.5 - Hyperlipidemia, unspecified Medications: Discontinued atorvastatin (Lipitor) Discontinued Reason: Patient no longer taking 40 mg PO QPM 30 tabs 0RF Coding Level of Care Code Est Pt Level 4 (19657) Complex EM visit Add On G2211 Diagnoses Elevated troponin R79.89 Stress-induced cardiomyopathy I51.81 Hyperlipidemia E78.5 Hospital discharge follow-up Z09 Time Spent (min) 28
[2025-08-13 14:55] VITALS: BP 108/72; PULSE 65; BMI 26.1
--- OUTSIDE RECORDS SUMMARY | 2025-08-13 17:42 | XMS_ITS | Patient Health Record ---
Author Organization [facility] Address [address] [place] [address] Care Team Providers Care Pile Driving Technician Name Role Phone Sera (RETIRED) Umesh SHEARER Primary Care Prov ider Tico Ambrosio Unavailable [phone] Allergies Allergen (clinical drug ingredient) Drug/Non Drug [...] BY MO UTH EVERY DAY IN THE MORNING; Duration: 90 Active buPROPion HCl 150mg Active Fluoxetine 40 Active Multivitamin Active Rosuvastatin Calcium 10 MG Orally Active Tylenol Active Immunizations Vaccine Route Administration Date Status Comme nts Influenza Unknown 03/09/2021 Refused Problems Problem Type SNOMED Code ICD Code Onset Dates Problem Status W/U Status Risk Notes Problem Esophageal reflux (321831889) Esophageal reflux (K21.9) Active confirmed Problem Screening for malignant neoplasm of colon (388147639) Encounter for screening for malignant neoplasm of colon (Z12.11) Active confirmed Problem History of adenomatous polyp of colon (283111030) History of adenomatous polyp of colon (Z86.010) Active confirmed Problem Zazueta's esophagus (412920359) Zazueta's esophagus without dysplasia (K22.70) Active confirmed Problem Screening for malignant neoplasm of rectum (155290390) Encounter for screening for malignant neoplasm of rectum (Z12.12) Active confirmed Problem Gastritis (5056126) Gastritis (K29.70) Active confirmed Problem Ulcer of esophagus (26137435) 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) Active confirmed Problem Diverticulosis of sigmoid colon (414481600) Diverticulosis of sigmoid colon (K57.30) Active confirmed Plan Of Treatment Future Test Test Name Order Date UPPER GI ENDOSCOPY 11/16/2015 COLONOSCOPY 11/16/2015 UPPER GI ENDOSCOPY 03/09/2021 COLONOSCOPY 03/09/2021 Insurance Providers Payer Name Payer Address Payer Phone Subscriber Number Group Number Insured Name Patient Relationship to Insured Coverage Start Date Coverage End Date [employer] [address] [place] [address] [id number] KRIS PALACIO Self - patient is the insured Medical (General) History Medical History History ICD Code Surveillance EGD/Screening C olonoscopy 06/13/2011-small HH and Zazueta's, no dysplasia; gastritis, neg. H.pylori; tubular adenomas, diverticulosis and internal hemorrhoids Depression EtOH abuse with sobriety since 2000 GERD/Barretts Esophagus as above Denies SC,DM,CVA,renal disease Asthma Upper GI bleeding in 2000 in relation to gastric ulcers-this was when she was actively drinking, smoking, and using NSAIDs. Sleep apnea-cpap machine Hyperlipidemia Meningioma brain tumor removed in 2018-Kelin Mason at [facility]--no XRT/Chemo Colonoscopy in February of 2016 [...]
--- OUTSIDE RECORDS SUMMARY | 2025-08-13 17:42 | XMS_ITS | Encounter Summary ---
Author Organization [facility] Address [address] [facility] [address] [place] [address] Phone Care Team Providers Care Stone Cleaner Name Role Phone ChanceRoger martinmarita SHAFER Primary Care Provider [phone] Self-Referred, Patient Unavailable Unavailab David Weinberg MD Unavailable Encounter Details Date Type Department Care Team (Late st Contact Info) Description 07/22/2024 Procedure Pass [facility] [address] [place] [address] Social History Tobacco Use Types Packs/Day Years [...] with a working camera? Not on file Intimate Partner Violence Answer Date R ecorded Are you denied basic needs s uch as food, clothing, or medical care? No 07/22/2024 In the past 12 months have y ou been in a relationship with a person who hurts, threatens, or tries to control you? No 07/22/2024 Are you denied basic needs s uch as food, clothing, or medical care? No 07/22/2024 In the past 12 months have y ou been in a relationship with a person who hurts, threatens, or tries to control you? No 07/22/2024 Comments No Sex and Gender Information Value Date Recorded Sex Assigned at Female 06/04/2024 1:33 PM EDT Legal Sex Female 1:27 PM EDT Gender Identity Female 06/04/2024 1:33 PM EDT Sexual Orientation Straight 06/04/2024 1: 33 PM EDT documented as of this encounter Functional Status * Calculated C-SSRS Risk Score (Lifetime/Recent) Answer Date of Assessment Author No Risk Indicated 07/22/2024 3:00 PM EDT Nivia Gallagher RN * [place] Suicide Severity Rating Scale (Screener/Recent Self-Report) Question Answer Date of Assessment Author 1. Wish to be (Past 1 Month) No 07/22/2024 3:00 PM EDT Edison Perez, RN 2. Non-Specific Active Suici romie Thoughts (Past 1 Month) No 07/22/2024 3:00 PM EDT Suze Perez, RN 6. Suicidal Behavior (Lifetime) No 4 3:00 PM EDT Nivia Perez RN documented as of this encounter Plan of Treatment Not on file documented as of this encounter Visit Diagnoses Not on filedocumented in this encounter Care Teams Stone Cleaner Relationship Specialty Start Date End Date Gretchen Fletcher NP [address] [place] [address] PCP - General Nurse Practitioner 06/04/24 Self-Referred, Patient Referring Physician 06/04/24 David Roper MD [address] [place] [address] [email or web address] Referring Physician Radiation Oncology 06/04/24 documented as of this encounter Additional Source Comments The information contained in this document represents components of the legal health record. It is not the complete legal health record.[facility]
--- OUTSIDE RECORDS SUMMARY | 2025-08-13 17:42 | XMS_ITS | Encounter Summary ---
Author Organization [facility] Address [address] [facility] [address] [place] [address] Phone Care Team Providers Care Habilitative Interventionist Name Role Phone ChanceRoger martinmarita SHAFER Primary Care Provider [phone] Self-Referred, Patient Unavailable Unavailab David Weinberg MD Unavailable Encounter Details Date Type Department Care Team (Late st Contact Info) Description 07/17/2024 Procedure Pass [facility] [address] [place] [address] Social History Tobacco Use Types Packs/Day Years [...] on filedocumented in this encounter Care Teams Habilitative Interventionist Relationship Specialty Start Date End Date Gretchen Fletcher NP [address] [place] [address] PCP - General Nurse Practitioner 06/04/24 Self-Referred, Patient Referring Physician 06/04/24 David Roper MD [facility] [place] [address] [email or web address] Referring Physician Radiation Oncology 06/04/24 documented as of this encounter Additional Source Comments The information contained in this document represents components of the legal health record. It is not the complete legal health record.[facility]
--- OUTSIDE RECORDS SUMMARY | 2025-08-13 17:42 | XMS_ITS | Encounter Summary ---
Author Organization [facility] Address [address] [address] Phone Care Team Providers Care Mortgage Processor Name Role Phone ChanceGretchen martin HOLLIS Primary Care Provider Self-Referred, Patient Unavailable Unavailab David Weinberg MD Unavailable Reason for Referral * MRI/CAT Scan - Closed Specialty Diagnoses / Procedures Referred By Shayla montiel Referred To Contact Radiology Diagnoses Meningioma Procedures CT Angio 3D Reconstruction Head CHG 3D RENDERING W/INTERP&POSTPROC DIFF WORK STATION Darrick Garcia MD Phone: tel: fax: [email or web address]:[email or web address] Referral ID Status Reason Start Date Expiration Date Visits Re quested Visits Authorized [id number] Closed 07/17/2024 07/17/2024 1 1 Encounter Details Date Type Department Care Team (Late st Contact Info) Description 07/17/2024 Ancillary Orders [facility] Department of Neurosurgery [address] [place] [address] Darrick Garcia MD [address] [place] [address] [email or web address] Meningioma (Primary Dx) Social History Tobacco Use Types Packs/Day Years [...] your housing situation today? I have jennifer sing 06/11/2024 How many times have you move [...] on file documented as of this encounter Results * CT Angio 3D Reconstruction Head (07/17/2024 3:05 PM EDT) Anatomical Region Laterality Modality Head Computed Tomogra phy 07/17/2024 4:06 PM EDT Impressions 07/17/2024 5:51 PM EDT 1. Lobulated 7 cm left frontal parasagittal mass with similar mass-effect and midline shift compared to MRI from outside. 2. Occlusion of the midportion of the superior sagittal sinus with arterial and venous anatomy adjacent to the mass as described. Narrative 07/17/2024 5:[address] ANGIO HEAD WITH AND WITHOUT CONTRAST, CT ANGIO 3D RECONSTRUCTION HEAD Referring clinician's provided indication for this examination in Epic: * Brain mass or lesion TECHNIQUE: Multidetector-row CTA of the head was performed before and after administration of intravenous contrast using tailored dose modulation techniques. Images were reconstructed in the axial, coronal, and sagittal planes, including angiographic image post-processing. 3D angiographic images with reformatting and post- processing reconstructions were performed ( on a separate dedicated postprocessing work station ) and interpreted. COMPARISON: Brain MRI from outside dated 06/12/2024 FINDINGS: HEAD CT: Brain Parenchyma: Marked edema in the left cerebral hemisphere surrounding the left parasagittal lobulated enhancing mass which accounting to difference in technique is not significantly changed since prior MRI measures approximately 7.3 x 3 x 3.6 cm this is causing approximately 8 mm rightward midline shift above the level of cingulate gyrus. No acute infarction. Ventricular System and Extra-Axial Spaces: The described mass at is in the extra-axial space. Effacement of the lateral ventricles. No evidence of hydrocephalus. No extra-axial fluid collection. Osseous and Extracranial Structures: Findings of prior left frontoparietal craniotomy. There are atherosclerotic calcifications of the bilateral carotid siphons. Dynamic CTA HEAD: The left parafalcine lobulated mass invading the middle portion of superior sagittal sinus with small but persistent luminal enhancement in the anterior segment of the superior sagittal sinus. Small size veins originate within the mass anteriorly and apparently drain into the nonobstructed portion of the superior sagittal sinus anteriorly. Some of the venous structures that originate inferiorly and posteriorly converge into a moderate size vein which bypasses the posterior portion of the mass that invades the superior sagittal sinus and drain into cortical veins. The mass inferiorly and medially borders the inferior sagittal sinus which is patent. Small arteries from anterior cerebral artery branches are coursing along the periphery of the mass. Procedure Note Juliet Bush MD - 07/17/2024 CT ANGIO HEAD WITH AND WITHOUT CONTRAST, CT ANGIO 3D RECONSTRUCTION HEAD Referring clinician's provided indication for this examination in Epic: *Brain mass or lesion TECHNIQUE: Multidetector-row CTA of the head was performed before and afteradministration of intravenous contrast using tailored dose modulationtechniques. Images were reconstructed in the axial, coronal, and sagittalplanes, including angiographic image post-processing. 3D angiographicimages with reformatting and post-processing reconstructions wereperformed ( on a separate dedicated postprocessing work station ) andinterpreted. COMPARISON: Brain MRI from outside dated 06/12/2024 FINDINGS: HEAD CT: Brain Parenchyma: Marked edema in the left cerebral hemisphere surroundingthe left parasagittal lobulated enhancing mass which accounting todifference in technique is not significantly changed since prior MRImeasures approximately 7.3 x 3 x 3.6 cm this is causing approximately 8 mmrightward midline shift above the level of cingulate gyrus. No acuteinfarction. Ventricular System and Extra-Axial Spaces: The described mass at is in theextra- axial space. Effacement of the lateral ventricles. No evidence ofhydrocephalus. No extra-axial fluid collection. Osseous and Extracranial Structures: Findings of prior left frontoparietalcraniotomy. There are atherosclerotic calcifications of the bilateralcarotid siphons. Dynamic CTA HEAD: The left parafalcine lobulated mass invading the middle portion ofsuperior sagittal sinus with small but persistent luminal enhancement inthe anterior segment of the superior sagittal sinus. Small size veinsoriginate within the mass anteriorly and apparently drain into thenonobstructed portion of the superior sagittal sinus anteriorly. Some ofthe venous structures that originate inferiorly and posteriorly convergeinto a moderate size vein which bypasses the posterior portion of the massthat invades the superior sagittal sinus and drain into cortical veins.The mass inferiorly and medially borders the inferior sagittal sinus whichis patent. Small arteries from anterior cerebral artery branches are coursing alongthe periphery of the mass. IMPRESSION: 1. Lobulated 7 cm left frontal parasagittal mass with similar mass-effectand midline shift compared to MRI from outside. 2. Occlusion of the midportion of the superior sagittal sinus witharterial and venous anatomy adjacent to the mass as described. Darrick Garcia MD IMG CT Final Result documented in this encounter Visit Diagnoses Diagnosis Meningioma Benign neoplasm of cerebral meninges Meningioma- Primary Benign neoplasm of cerebral meninges documented in this encounter Care Teams Mortgage Processor Relationship Specialty Start Date End Date Gretchen Fletcher NP [address] [place] [address] PCP - General Nurse Practitioner 06/04/24 Self-Referred, Patient Referring Physician 06/04/24 David Roper MD [facility] [place] [address] [email or web address] Referring Physician Radiation Oncology 06/04/24 documented as of this encounter Additional Source Comments The information contained in this document represents components of the legal health record. It is not the complete legal health record.[facility]
--- OUTSIDE RECORDS SUMMARY | 2025-08-13 17:42 | XMS_ITS | Encounter Summary ---
Author Organization [facility] Address [address] [address] Phone Care Team Providers Care Dredge Runner Name Role Phone ChanceRoger martinmarita SHAFER Primary Care Provider [phone] Self-Referred, Patient Unavailable Unavailab David Weinberg MD Unavailable Encounter Details Date Type Department Care Team (Late st Contact Info) Description 07/22/2024 Procedure Pass [facility] Periop [address] [place] [address] Social History Tobacco Use Types Packs/Day Years [...] Risk Indicated 07/22/2024 3:00 PM EDT Nivia Kim RN * [place] Suicide Severity Rating Scale (Screener/Recent Self-Report) Question [...] on filedocumented in this encounter Care Teams Dredge Runner Relationship Specialty Start Date End Date Gretchen Fletcher NP [address] [place] [address] PCP - General Nurse Practitioner 06/04/24 Self-Referred, Patient Referring Physician 06/04/24 David Roper MD [facility] [place] [address] [email or web address] Referring Physician Radiation Oncology 06/04/24 documented as of this encounter Additional Source Comments The information contained in this document represents components of the legal health record. It is not the complete legal health record.[facility]
--- OUTSIDE RECORDS SUMMARY | 2025-08-13 17:42 | XMS_ITS | Encounter Summary ---
Author Organization [facility] Address [address] [facility] [address] [place] [phone] Phone Care Team Providers Care Certified Pest Control Technician Name Role Phone ChanceRoger martinmarita SHAFER Primary Care Provider [phone] Self-Referred, Patient Unavailable Unavailab David Weinberg MD Unavailable Encounter Details Date Type Department Care Team (Late st Contact Info) Description 2024 Procedure Pass [facility] [address] [place] [address] Social History Tobacco Use Types Packs/Day Years [...] on filedocumented in this encounter Care Teams Certified Pest Control Technician Relationship Specialty Start Date End Date Gretchen Fletcher NP [address] [place] [address] PCP - General Nurse Practitioner 06/04/24 Self-Referred, Patient Referring Physician 06/04/24 David Roper MD [facility] [place] [address] [email or web address] Referring Physician Radiation Oncology 06/04/24 documented as of this encounter Additional Source Comments The information contained in this document represents components of the legal health record. It is not the complete legal health record.[facility]
--- OUTSIDE RECORDS SUMMARY | 2025-08-13 17:42 | XMS_ITS | Data Portability ---
Author Organization [facility] [address] Address [address] [place] [id number] Assessment No assessment recorded. Plan of Treatment Reminders Order Date Submit Date Provider Last Modified By Organization Details Last Modified Time Details Appointments None recorded. Lab None recorded. Referral None recorded. Procedures None recorded. Surgeries None recorded. Imaging None recorded. Medication Orders Allergy Relief (fluticason e) 50 mcg/actuati on nasal spray,suspe nsion 2022 023 [facility] #[id number], [address] [place], [address], 3 17:59:38 prednisone 20 mg tablet 2022 023 [facility] #[id number], [address] [place], [address], 3 17:59:34 Patient TargetsNo targets recorded. Patient Instructions Encounter Date Encounter Id Patient Instructions Last Modified By Organization Details Last Modified Time 02/01/2023 [id number] An ear infection may start with a cold and affect the middle ear (otitis media). It can hurt a lot. Most ear infections clear up on their own in a couple of days and do not need antibiotics. Also, antibiotics do not work against viruses, which may be the cause of your infection. Regular doses of pain relievers are the best way to reduce your fever and help you feel better. How can you care for yourself at home? Take pain medicines exactly as directed. If the doctor gave you a prescription medicine for pain, take it as prescribed. If you are not taking a prescription pain medicine, take an vgqm-clw-akuqoai medicine, such as acetaminophen (Tylenol), ibuprofen (Advil, Motrin), or naproxen (Aleve). Read and follow all instructions on the label. Do not take two or more pain medicines at the same time unless the doctor told you to. Many pain medicines have acetaminophen, which is Tylenol. Too much acetaminophen (Tylenol) can be harmful. Plan to take a full dose of pain reliever before bedtime. Getting enough sleep will help you get better. Try a warm, moist face cloth on the ear. It may help relieve pain. If your doctor prescribed antibiotics, take them as directed. Do not stop taking them just because you feel better. You need to take the full course of antibiotics. [email or web address] Not available 02/01/2023 17:58:56 Reason for Referral None Reported. 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 Procedures Surgical History Date Name Laterality Status Provider Name and Address Organization Details Recorded Time craniotomy completed MAGDIEL DEPINTO PA - [facility] 02/01/2023 17:30:10 3 procedure on back completed MAGDIEL DEPINTO PA - [facility] 02/01/2023 17:31:24 Imaging Results None recorded. Procedure Notes None recorded. Medical Equipment None Reported. Allergies Allergen ID Allergen Name Allergen Category Reaction Reaction Severity Criticality Documentation Date Start Date Code Code System Note Provider Name and Address Organization Details Recorded Time 571811 Bactrim medicatio n hives Not available Not available 02/01/2023 02355 9 RxNorm MAGDIEL DEPINTO null, PA - [facility] 3 17:26:59 442883 Tequin medicatio n hives Not available Not available 02/01/2023 10115 4 RxNorm MAGDIEL DEPINTO null, PA - [facility] 3 17:27:09 666638 Omnicef medicatio n hives Not available Not available 02/01/2023 81542 RxNorm MAGDIEL DEPINTO null, PA - [facility] 3 17:27:15 Medications Name Sig Start Date Stop Date Status Note LastModified by Organization Details LastModified Time fluoxetine 40 mg capsule TAKE 1 CAPSULE BY MOUTH EVERY DAY active Not Available Not Available No t Available bupropion HCl SR 150 mg tablet,12 hr sustained-re lease TAKE 1 TABLET BY MOUTH EVERY DAY active Not Available Not Available No t Available prednisone 20 mg tablet TAKE 2 TABLETS EVERY DAY BY ORAL ROUTE IN THE MORNING FOR 4 DAYS. active Not Available Not Available Not Available omeprazole 20 mg capsule,julee yed release TAKE 1 CAPSULE BY MOUTH EVERY DAY IN THE MORNING active Not Available Not Available No t Available fluticasone propionate 50 mcg/actuatio n nasal spray,suspen kortney SPRAY 1 SPRAY BY INTRANASAL ROUTE EVERY DAY DIRECTED FOR 30 DAYS active Not Available Not Available Not Available rosuvastatin 10 mg tablet TAKE 1 TABLET BY MOUTH EVERY DAY active Not Available Not Available No t Available Vitals Date Recorded Body height Body mass index (BMI) Body weight Pain severity - 0-10 verbal numeric rating [Score] - Reported Respiratory rate Body temperature Oxygen saturation Oxygen saturation in Arterial blood by Pulse oximetry Heart rate Systolic And Diastolic Provider Name and Address Organization Details Last Updated DateTime 3 167.64 cm 27.4 kg/m2 00979.7 g 0 18 /min 97.4 [degF] 96 % 96 % 74 /min 131/80 mm[Hg] MAGDIEL DEPINTO PA - [facility] 3 17:33:05 Social History Question Answer Notes LastModified by Organizat ion Details LastModified Time Tobacco Smoking Status Former Smoker MAGDIEL JOSEINTO null, PA - [facility] 02/01/2023 17:29:43 When Did You Quit Smoking? 16+yearssinc elastcigaret te Information not available 02/01/2023 Have You Recently Traveled Abroad? No Information not available 02/01/2023 Sex: Unknown Functional Status Question Answer Note LastModified by Organizat ion Details LastModified Time Do you use any illicit or recreational drugs? No Information not available 02/01/2023 Do you or have you ever used any other forms of tobacco or nicotine? No Information not available 02/01/2023 What is your level of alcohol consumption? None Information not available 02/01/2023 Mental Status None recorded. Family History Relationship Description Onset Age of this Age Resolved Age Notes LastModified by Organization Details LastModified Time Father Malignant neoplasm of pancreas Not available 2022 17:29:03 Mother Heart disease Not available 2022 17:29:09 Mother Dementia Not availabl e 02/01/2023 17:29:13 Mother Cerebrovascu lar accident Not available 17:29:19 Medical History No medical history recorded. Gynecological HistoryNo gynecological history recorded. Obstetrics History GPAL:G 0 P 0 0 0 0 Immunizations Vaccine Type Date Status Note Provider Nam e and Address Organization Details Recorded Time COVID-19, mRNA, LNP-S, PF, 100 mcg/0.5mL dose or 50 mcg/0.25mL dose 1 completed MAGDIEL DEPINTO null, PA - [facility] 02/01/2023 17:26:45 COVID-19, mRNA, LNP-S, PF, 100 mcg/0.5mL dose or 50 mcg/0.25mL dose 1 completed MAGDIEL DEPINTO null, PA - [facility] 02/01/2023 17:26:45 COVID-19, mRNA, LNP-S, PF, 100 mcg/0.5mL dose or 50 mcg/0.25mL dose 1 completed MAGDIEL DEPINTO null, PA - [facility] 02/01/2023 17:26:45 Pneumococcal conjugate PCV 13 1 completed MAGDIEL DEPINTO null, PA - [facility] 02/01/2023 17:26:45 Td (adult), 2 Lf tetanus toxoid, preservative free, adsorbed 1 completed MAGDIEL DEPINTO null, PA - [facility] 02/01/2023 17:26:45 Past Encounters Encounter ID Performer Location Encounter Start Date Encounter Closed Date Diagnosis/Indication Diagnosis SNOMED-CT Code Diagnosis ICD10 Code Diagnosis IMO Codes Diagnosis Note [id number] [address] [place] [address] 02/06/2020 15:28:18 02/06/2020 16:33:08 [id number] [address] [place] [address] 06/02/2020 18:57:39 06/02/2020 20:02:59 [id number] [address] [place] [address] 02/25/2020 15:34:11 02/25/2020 16:09:02 [id number] [address] [place] [address] 05/23/2015 18:58:54 05/23/2015 20:20:26 [id number] [address] [place] [address] 09/26/2020 17:56:56 09/26/2020 18:51:43 [id number] [address] [place] [address] 07/11/2022 15:50:40 07/11/2022 16:54:02 [id number] [address] [place] [address] 04/07/2021 11:12:18 04/07/2021 11:39:24 [id number] [address] [place] [address] 07/28/2016 15:49:23 07/28/2016 16:31:50 [id number] Harjit Henderson [place] [address] [place] [address] 02/01/2023 16:52:46 02/01/2023 18:00:00 Acute serous otitis media of bilateral ears [id number] 318255 H65.03 Health Concerns Section Related Observation LastModified by Organization Detai ls LastModified Time None Recorded Concern Status LastModified by Organization Details LastModified Time None Recorded Advance Directives Directive None Recorded Payers Insurance Date Sequence Insurance Name Policy Number Policy Copeland Covered Member ID Copeland Member ID Guarantor Name 05/07/2023 2 [facility] [id number] Brittny A Alfredo [id number] Brittny A Alfredo 05/07/2023 1 MEDICARE B-DE: [facility] Brittny A Alfredo [id number] Brittny A Alfredo Notes Date Note Type Note Provider Name and Address Organization Details Recorded Time 3 text/html Sinus Complaints UCReported by PatientHPIFor location, patient reportssinus pain,facial pain, andsinus pressure. For associated symptoms, patient reportsdifficulty breathing,post nasal drip,nasal passage blockage __, andcoughbut reportsno fever,no nausea or vomiting,no sore throat,no ear fullness,no nasal itching,no eye itching, andno dizziness. For quality, patient reportsworseningbut reportsminimal discomfortandclear. For context, patient reportsworse with environmental exposurebut reportsno recent upper respiratory infection,no recent sick contacts, andnot worse with seasonal allergen exposure. For onset/timing, patient reportsworse in amandworse in pm. For duration, patient reportsfrequent. For severity, patient reportsmoderate. For risk factors, patient reportsno current smoking or tobacco useandno history of nasal trauma. For alleviating factors, patient reportsoral steroids. For aggravating factors, patient reportsworse during an upper respiratory infection (a cold)andworse with excess fatigue. For prior treatment, patient reportsoral decongestant. Shortness of BreathReported by Patient Harjit Henderson NP [address] [place], [address], [place] - [facility] 02/01/2023 18:00:15 OBGyn Episode No OBEpisode recorded.
--- OUTSIDE RECORDS SUMMARY | 2025-08-13 17:43 | XMS_ITS | Encounter Summary ---
Author Organization [facility] Address [address] [address] Phone Care Team Providers Care Scrap Sawyer Name Role Phone ChanceRoger martinmarita SHAFER Primary Care Provider [phone] Self-Referred, Patient Unavailable Unavailab David Weinberg MD Unavailable Encounter Details Date Type Department Care Team (Late st Contact Info) Description 07/29/2024 Procedure Pass [facility]'s Inspector [employer] [place] [address] [place] [address] Social History Tobacco Use Types Packs/Day Years [...] PM EDT documented as of this encounter Last Filed Vital Signs Vital Sign Reading Time Taken Comments Blood Pressure - - Pulse - - Temperature - - Respiratory Rate - - Oxygen Saturation - - Inhaled Oxygen Concentration - - Weight 68 kg (150 lb) 07/31/2024 2:11 PM EDT Height 161.3 cm (5' 3.5 ) 07/31/2024 2:11 PM EDT Body Mass Index 26.15 07/31/2024 2:11 PM EDT documented in this encounter Plan of Treatment Not on file documented as of this encounter Visit Diagnoses Not on filedocumented in this encounter Care Teams Scrap Sawyer Relationship Specialty Start Date End Date Gretchen Fletcher NP [address] [place] [address] PCP - General Nurse Practitioner 06/04/24 Self-Referred, Patient Referring Physician 06/04/24 David Roper MD [facility] [place] [address] [email or web address] Referring Physician Radiation Oncology 06/04/24 documented as of this encounter Additional Source Comments The information contained in this document represents components of the legal health record. It is not the complete legal health record.[facility]
--- OUTSIDE RECORDS SUMMARY | 2025-08-13 17:43 | XMS_ITS | Clinical Summary ---
Author Organization [facility] Address [address] [address] Phone Care Team Providers Care Bliss Press Operator Name Role Phone Chance, Gretchen SHAFER Primary Care Provider [phone] Self-Referred, Patient Unavailable Unavailab David Weinberg MD Unavailable Allergies Active Allergy Reactions Criticality Noted Date Comments Atorvastatin Low 07/15/2024 Leg cramps Sulfamethoxazole-Trimethoprim Hives Low 2023 Cefdinir Hives Low 07/15/2024 Gatifloxacin Hives Low 07/15/2024 Medications buPROPion (WELLBUTRIN SR) 150 MG SR 12 hr tablet Take 150 mg by mouth daily with dinner. Active FLUoxetine (PROZAC) 20 MG capsule Take 40 mg by mouth daily. Active omeprazole (PRILOSEC) 20 MG tablet Take 20 mg by mouth daily. Active therapeutic multivitamin tablet Take 1 tablet by mouth daily. Active rosuvastatin (CRESTOR) 10 MG tablet Take 10 mg by mouth daily. Active acetaminophen (TYLENOL) 500 MG tablet Take 1-2 tablets (500-1,000 mg total) by mouth every 6 (six) hours as needed. 40 tablet 4 Active oxyCODONE 5 MG immediate release tablet Take 1-2 tablets (5-10 mg total) by mouth every 3 (three) hours as needed. Partial fill ok 20 tablet Active levETIRAcetam (KEPPRA) 500 MG tablet Take 1 tablet (500 mg total) by mouth 2 (two) times a day. 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 Depression 06/10/2024 Colon polyp 06/10/2024 Hyperlipidemia 06/10/2024 ANNE (obstructive sleep apnea) 06/10/2024 Impaired fasting glucose 06/10/2024 Immunizations Immunization Administration Dates Next Due Influenza High-Dose Trivalent Preservative Free IM 07/24/2024 Family History Medical History Relation Comments Pancreatic cancer Father Colon cancer Paternal Grandmother Relation Status Comments Father Paternal Grandmother Social History Tobacco Use Types Packs/Day Years Used Date Smoking Tobacco: Former Cigarettes Smokeless Tobacco: Never Tobacco Cessation:Counseling Given: Not Answered Alcohol Use Standard Drinks/Week Comments Not Currently 0 (1 standard drink = 0.6 oz pure alcohol) Recovering alcoholic x 20 years Child or Family Care Answer Date Record ed Do you have problems with on e of the following making it difficult for you to work, study, or receive health care? No 02/11/2025 Education Answer Date Recorded Are you interested in more education? Not on keyonna e 06/04/2024 Are you concerned about learning? Not on file 06/04/2024 No 06/04/2024 No 06/04/2024 Food Answer Date Recorded Within the past 6 months we worried whether our food would run out before we got money to buy more. Never True 02/11/2025 Within the past 6 months the food we bought just didn't last and we didn't have enough money to get more. Never True Residential Stability Answer Date Recor ded What is your housing situation today? I have jennifer sing 02/11/2025 How many times have you move d in the past 12 months? Zero (I did not move) 02/11/2025 Paying for Meds Answer Date Recorded Do you have trouble paying for medicines? No 02/11/2025 Paying Utility Bills Answer Date Record ed Do you have trouble paying your heating or elect ricity bill? No 02/11/2025 Transportation Answer Date Recorded Has the lack of transportati on kept you from medical appointments or from getting medications? No 02/11/2025 Digital Access Answer Date Recorded Yes 02/11/2025 Yes 02/11/2025 Do you have reliable internet access at home? Ye s 02/11/2025 Do you have a device (e.g., phone, tablet, computer) with a working camera? No 02/11/2025 Intimate Partner Violence Answer Date R ecorded [...] Orientation Straight 06/04/2024 1: 33 PM EDT Last Filed Vital Signs Vital Sign Reading Time Taken Comments Blood Pressure 123/66 07/31/2024 12:31 PM EDT Pulse 81 07/31/2024 12:31 PM EDT Temperature 36.8 C (98.2 F) 07/31/2024 12:31 PM EDT Respiratory Rate 16 07/31/2024 12:27 PM EDT Oxygen Saturation 94% 07/31/2024 12:31 PM EDT Inhaled Oxygen Concentration - - Weight 68 kg (150 lb) 07/31/2024 2:11 PM EDT Height 161.3 cm (5' 3.5 ) 07/31/2024 2:11 PM EDT Body Mass Index 26.15 07/31/2024 2:11 PM EDT Plan of Treatment Health Maintenance Due Date Last Done Comments LIPID PANEL 1956 DEPRESSION SCREENING 1968 SMOKING Hx and SMOKELESS TOBACCO SCREENING 1969 HEPATITIS C SCREENING 1974 COLOGUARD 2001 COLONOSCOPY 2001 COLORECTAL CANCER SCREENING 2001 FIT TEST 2001 FOBT 2001 SIGMOIDOSCOPY 2001 VIRTUAL COLONOSCOPY 2001 OSTEOPOROSIS SCREENING INITI AL (ONE-TIME) 2021 INFLUENZA VACCINE (#1) 2025 , 11/02/2023 COVID-19 VACCINE (4 - 2024-2 6 season) 2025 08/10/2021, 12/03/2020, 11/05/2020 MAMMOGRAM 09/19/2025 09/19/2023, 03/30/2020 SCREENING FOR DIABETES 07/17/2027 07/17/2024 RSV VACCINE (1 - 1-dose 75+ series) 2031 Adult Td,Tdap Booster 07/18/2031 07/18/2021 PNEUMOCOCCAL VACCINES (50+ years) Completed 04/20/2023, 07/18/2021 ZOSTER VACCINES Completed 07/10/2023, 04/19/2023 HEPATITIS A VACCINES Aged Out No long er eligible based on patient's age to complete this topic HIB VACCINES Aged Out No longer eligi ble based on patient's age to complete this topic MENINGOCOCCAL VACCINES (ACWY) Aged Out No longer eligible based on patient's age to complete this topic MENINGOCOCCAL VACCINES (B) Aged Out N o longer eligible based on patient's age to complete this topic Medical Devices Implanted Type Area Intelligence Operations Device Identifier Shelf Expiration Date Model / Serial / Lot Screw Bone 1.5x4mm Ti Self Drilling Matrixneuro - [id number] Implanted:Qty: 6 on 07/22/2024 by Darrick Garcia MD at [facility] STANDARD Left: Cranial JNJ DEPUY SYNTHES SPINE [id number] 4.01 / / Graft Tissue 4.0x5.0in Duragen Plus Ultra Pure Collagen Regeneration Matrix Dural - [id number] Implanted:Qty: 1 on 07/22/2024 by Darrick Garcia MD at [facility] Left: Cranial Xcelaero CHON [id number] / / Cover Keren 17mm Hole Cranial Matrixneuro Titanium Ultra Low Profile - [id number] Implanted:Qty: 1 on 07/22/2024 by Darrick Garcia MD at [facility] Left: Cranial JNJ DEPUY SYNTHES SPINE 04502. 3 / / Set Putty 3ml Graft Bone Cranios Reinced Fast Ting Syringe - [id number] Implanted:Qty: 3 on 07/22/2024 by Darrick Garcia MD at [facility] Left: Cranial DEPUY SYN[employer]ES [employer] 08/11/2025 615.03.01 S / / Clip Anasto 3.0mm 25 Large Vcs Vessel Closure System Extra S - [id number] Implanted:Qty: 1 on 07/22/2024 by Darrick Garcia MD at [facility] Left: Cranial [employer] 4000-08 / / Procedures Procedure Name Priority Date/Time Associated Diagnosis Comments BI MAMMOGRAM OUTSIDE (NO INTERPRETATION) Routine 09/19/2023 12:05 AM EST from Last 3 Months or Most Recently Relevant to Health Maintenance Results * Mammogram Outside (No Interpretation) (09/19/2023 12:05 AM EST) Other Narrative YULIET - 06/09/2024 11:09 AM EDT This study is for PACS storage only and not for interpretation. Kevin Vazquez MD, MPH IMG OUTSIDE IMAGING W /OUT INTERPRETATION Final Result PERCIPIO_BWH from Last 3 Months or Most Recently Relevant to Health Maintenance Insurance MEDICARE PART A & B MEDICARE SUPPLEMENT MEDICARE PART A & B EXTENSION MEDICARE SUPPLEMENT MEDICARE PART A & B [employer] EXTENSION MEDICARE SUPPLEMENT MEDICARE PART A & B [employer] EXTENSION MEDICARE SUPPLEMENT MEDICARE PART A & B [employer] MEDICARE SUPPLEMENT MEDICARE PART A & B [employer] EXTENSION MEDICARE SUPPLEMENT Advance Directives For more information, please contact: [phone] (9AM - 5PM [place]/[facility], Sunday-Sunday) Documents on File Type Date Recorded Patient Record Press Operator Expl anation Healthcare Proxy 07/22/2024 * Full Code (Latest Code Status on File) Date Activated Date Inactivated Comments 07/22/2024 2:07 PM Question Answer Comments Code Status Confirmed With: Patient Care Teams Bliss Press Operator Relationship Specialty Start Date End Date Gretchen Fletcher NP [address] [place] [address] PCP - General Nurse Practitioner 06/04/24 Self-Referred, Patient Referring Physician 06/04/24 David Roper MD [address] [place] [id number] [email or web address] Referring Physician Radiation Oncology 06/04/24 Additional Source Comments The information contained in this document represents components of the legal health record. It is not the complete legal health record.[facility]
== END 2025-08-13 15:22 | disposition home or self-care (01) ==
LOC: HO.HCS 14:49
PROVIDERS: PCP Nurse Practitioner Family; Visit Provider Nurse Practitioner Family
DX: R79.89 Other specified abnormal findings of blood chemistry (principal); I51.81 Takotsubo syndrome; E78.5 Hyperlipidemia, unspecified; Z09 Encounter for follow-up examination after completed treatment for conditions other than malignant neoplasm
CPT/HCPCS: 99214; G2211

== ENCOUNTER → 2025-08-13 14:48 | Outpatient (BNVA) | payer MEDICARE, OTHER, SELFPAY | PROVIDERS: PCP Nurse Practitioner Family; Visit Provider Nurse Practitioner Family | DX: Z09 Encounter for follow-up examination after completed treatment for conditions other than malignant neoplasm (principal); R79.89 Other specified abnormal findings of blood chemistry; I51.81 Takotsubo syndrome; E78.5 Hyperlipidemia, unspecified | CPT/HCPCS: 99212 ==

== ENCOUNTER 2025-10-06 18:11 | Emergency (ER) | payer MEDICARE, OTHER, SELFPAY ==
--- NOTE | ~2025-10-06 | CT_ITS ---
CLINICAL HISTORY: fall CT cervical spine without contrast Comparison: 06/01/2025 Findings: Normal limited view of the intracranial contents. Soft tissues of the neck are normal. Lung apices are normal. Stable vertebral body alignment. No fractures or dislocations. Similar degenerative changes, more significant C5-7. Impression: 1. No cervical vertebral fracture or traumatic malalignment. This document has been electronically signed by: Aníbal Gupta MD on 10/06/2025 19:42:16
--- NOTE | ~2025-10-06 | CT_ITS ---
CLINICAL HISTORY: fall CT maxillofacial without contrast Comparison: None provided Findings: No acute fractures. Temporomandibular joints are intact. Paranasal sinuses and mastoid air cells clear. Orbital contents within normal limits. Visualized intracranial contents are within normal limits. No foreign bodies. IMPRESSION: Unremarkable maxillofacial CT. This document has been electronically signed by: Glen Vasquez MD on 10/06/2025 20:13:41
--- NOTE | ~2025-10-06 | CT_ITS ---
CLINICAL HISTORY: fall CT head without contrast Comparison: 06/01/2025 Findings: No new intra-axial mass, midline shift, hydrocephalus, or acute hemorrhage. 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 There is no sinus or mastoid fluid. The orbits are within normal limits. There is no acute fracture. IMPRESSION: 1. No acute intracranial findings. This document has been electronically signed by: Glen Vasquez MD on 10/06/2025 20:12:34
[2025-10-06 18:18] VITALS: BP 134/61; PULSE 68; RESP 18; TEMP 36.9; O2SAT 98; BMI 27.1
--- NOTE | 2025-10-06 18:26 | ED.GENADULT ---
HPI - General Adult General Chief complaint: Fall Stated complaint: Fall/Hit head Time Seen by Provider: 10/06/25 19:38 Source: patient, RN notes reviewed and old records reviewed Mode of arrival: ambulatory Limitations: no limitations History of Present Illness ED Provider: Armen HPI narrative: 70-year-old female with a past medical history significant for meningioma followed by Neurosurgery in [place] and radiation oncology presents for evaluation of a fall. the patient reports that she was cleaning out her mother's room who recently . She reports that she bent over and then fell forward striking the top of her head. When she tried to get up she fell again and struck her head again. She reports a mild headache but otherwise denies neck pain, chest pain, hip pain the patient reports that she is on Keppra 500 mg b.i.d. which she feels is contributing to falls. She reports that she has suffered about 1 fall per month over the last year or so she is due for another screening MRI of her brain October 17 denies any visual changes, difficulty speech, weakness Related Data Home Medications ?Medication ?Instructions ?Recorded ?Confirmed fluoxetine 40 mg capsule 40 mg PO DAILY 03/23/21 08/13/25 multivitamin 1 tab PO DAILY 03/23/21 08/13/25 bupropion HCl 150 mg tablet,12 hr 150 mg PO DAILY 06/02/25 08/13/25 sustained-release levetiracetam 500 mg tablet 500 mg PO BID 06/02/25 08/13/25 omeprazole 20 mg capsule,delayed 20 mg PO DAILY@0630 06/02/25 08/13/25 release Previous Rx's ?Medication ?Instructions ?Recorded metoprolol succinate 25 mg 25 mg PO DAILY #30 tabs 06/03/25 tablet,extended release 24 hr aspirin 81 mg tablet 81 mg PO DAILY #90 tabs 06/05/25 rosuvastatin 20 mg tablet 20 mg PO DAILY #30 tabs 06/05/25 Allergies Allergy/AdvReac Type Severity Reaction Status Date / Time cefdinir (From OMNICEF) Allergy Unknown HIVES Verified 10/06/25 18:21 gatifloxacin (From TEQUIN) Allergy Unknown HIVES Verified 10/06/25 18:21 Sulfa (Sulfonamide Allergy Unknown HIVES Verified 10/06/25 18:21 Antibiotics) (SULFA(SULFONAMIDE ANTIBIOTICS)) atorvastatin AdvReac Intermediate Myalgia Verified 10/06/25 18:21 Review of Systems Constitutional: Constitutional: Denies body ache(s), Denies chills, Denies fever(s), Reports frequent falls and Reports headache(s) Eyes: Eyes: Denies blurry vision, Denies floaters, Denies irritation and Denies itchy eyes ENT: Denies vertigo, Denies dizziness and Reports headache(s) Cardiovascular: Cardiovascular: Denies chest pain, Denies chest pain at rest and Denies dyspnea on exertion Respiratory: Respiratory: Denies cough and Denies dyspnea on exertion Gastrointestinal: Gastrointestinal: Denies abdominal pain and Denies nausea Musculoskeletal: Musculoskeletal: Denies back pain Integumentary/Breasts: Skin/Breast: Denies rash Neurologic: Denies vertigo, Denies dizziness, Reports frequent falls and Reports headache(s) Psychiatric: Psychiatric: Denies anxiety Allergic/Immunologic: Allergic/Immunologic: Denies itchy eyes PMFSH Past Medical History Medical History Fall Tobacco use Alcohol use disorder History of fall Gastritis Erosive esophagitis Hiatal hernia Diverticulosis Meningioma, cerebral Castlemans disease Hyperlipidemia H/O: UGI bleed ANNE on CPAP Asthma Barretts esophagus GERD (gastroesophageal reflux disease) ETOH abuse Depression Surgical History Status post brain surgery Hx of lymph node excision [place] teeth extracted History of lumpectomy of left breast History of back surgery History of excision of tumor of brain meninges Hx of colonoscopy History of esophagogastroduodenoscopy (EGD) Social History Social History Household Members: None Housing: House Are you a primary pediatric critical care nurse to a significant other at home: No Do you presently have visiting nurse or other home services: Yes (PT, Speech, and nurse services periodically) Alcohol intake: former Comment: Quit 20 years ago Patient Tobacco Use Status: Former Tobacco user Tobacco use type: Cigarette Smoked in Last 30 Days: No Use of substances other than those prescribed or required for medical reasons: No Advance Directives: No Advance Directives Information Provided: No Physical Exam ED Vital Signs: Vital Signs - 24 hr 10/06/25 18:18 12/23/25 20:26 10/06/25 20:37 Temperature 98.4 F 98 F 98 F Pulse Rate 68 63 63 Respiratory Rate 18 17 17 Blood Pressure 134/61 117/61 117/61 Pulse Oximetry 98 97 97 Oxygen Delivery Method Room Air Room Air Room Air BMI result Body Mass Index 27.1 Const General: healthy appearing, comfortable, no acute distress, alert and awake Nutritional Appearance: well nourished Orientation/consciousness: patient oriented x3 HENMT Head: Yes normocephalic and Yes atraumatic Eyes Eyelids: Yes eyelids normal Conjunctivae: conjunctivae normal Sclerae: sclerae normal Corneas: corneas normal Pupils: Equal, round and reactive pupils present EOM: EOMs intact bilaterally Neck Neck: Yes full ROM Resp Effort & Inspection: normal respiratory effort, able to speak in complete sentences and not labored Cardio Rate: regular rate Rhythm: regular rhythm GI Inspection: No distended Palpation (GI): Soft to palpation, not firm, nontender, no guarding and not rigid Auscultation: normoactive bowel sounds Skin General skin exam: no rashes or lesions noted and elasticity normal Neuro General: patient oriented x3 Cranial nerves: Yes CN's II-XII intact bilaterally, Yes Equal, round and reactive pupils present and Yes Bilaterally intact EOM present Cognition (Neuro): normal cognition Gait exam (Neuro): Normal gait present, not antalgic, not ataxic and not festinating Motor exam (neuro): 5/5 motor strength present throughout, Pronator motor function not present, no tremor noted and no asterixis Coordination: [id number] test normal Romberg Test: Negative Extrem Other: Moving all extremities well without any obvious deformities Course Course Course Narrative: RME: 70-year-old female presents to ED for falling hitting her face. Patient states she has been over picking up something and she fell forward onto her head. Patient denies any loss of consciousness. Images ordered Medications Administered Discontinued Medications Generic Name Dose Route Start Last Admin Trade Name Freq PRN Reason Stop Dose Admin Acetaminophen 975 mg 10/06/25 19:58 10/06/25 20:09 Acetaminophen 325 Mg Tablet PO 10/06/25 19:59 975 mg ONCE ONE Administration Medical Decision Making Medical Decision Making MDM Narrative: 70-year-old female presents for evaluation 2 falls today that were at the same time. She reports she struck her head on both occasions. She reports worsening balance over the last year and a half and she is going to being treated for a form of meningioma that is described as aggressive. She completed 6 weeks of radiation treatment and had surgery twice. she has never had a seizure but is on Keppra 500 mg b.i.d. for prophylaxis of seizures. She is wondering if she can decrease this to 250 mg b.i.d.. Her physical exam is reassuring, vital signs are stable, she has a NIH stroke score of 0. No evidence of significant traumatic injury. CT scan of the brain, cervical spine and facial bones was ordered from triage. Use do not show any acute traumatic injuries. I discussed with the patient that she should continue her Keppra as prescribed until she follows up with a neurosurgeon. She has a screening MRI with in the next 2 weeks and after which she may discussed with the neurosurgeon about decreasing her Keppra. given her multiple falls I offered to have the patient evaluated by physical therapy and case management with the patient declines and reports that she feels safe being discharged home for the holidays Differential Diagnosis Differential Diagnoses: The differential diagnosis associated with the presentation includes meningioma CVA Intracranial hemorrhage Calvarial fracture Cervical fracture Cervical strain Fall Radiology Impression Discussion of test interpretation with radiology: I have reviewed the radiologist's reading. Radiologist Impression: Findings: No acute fractures. Temporomandibular joints are intact. Paranasal sinuses and mastoid air cells clear. Orbital contents within normal limits. Visualized intracranial contents are within normal limits. No foreign bodies. IMPRESSION: Unremarkable maxillofacial CT. This document has been electronically signed by: Glen Vasquez MD on 10/06/2025 20:13:41 Findings: No new intra-axial mass, midline shift, hydrocephalus, or acute hemorrhage. 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 There is no sinus or mastoid fluid. The orbits are within normal limits. There is no acute fracture. IMPRESSION: 1. No acute intracranial findings. This document has been electronically signed by: Glen Vasquez MD on 10/06/2025 20:12:34 Findings: Normal limited view of the intracranial contents. Soft tissues of the neck are normal. Lung apices are normal. Stable vertebral body alignment. No fractures or dislocations. Similar degenerative changes, more significant C5-7. Impression: 1. No cervical vertebral fracture or traumatic malalignment. This document has been electronically signed by: Aníbal Gupta MD on 10/06/2025 19:42:16 Discharge Plan Discharge Clinical Impression: Fall Patient Disposition: Home, Self-Care Instructions: Fall Prevention (ED) Additional Instructions: your CT scan did not show any acute findings to suggest traumatic injury. You do have some encephalomalacia in the left frontal lobe which is likely due to your known meningioma and radiation treatment. There was no bleeding in the brain. The CT scan of the face and cervical spine did not show any injuries either I recommend continuing your medications until you follow up with your neurosurgery office return for new or worsening symptoms Prescriptions: No Action aspirin 81 mg tablet 81 mg PO DAILY Qty: 90 3RF rosuvastatin 20 mg tablet 20 mg PO DAILY Qty: 30 5RF multivitamin Tablet 1 tab PO DAILY fluoxetine 40 mg Capsule 40 mg PO DAILY levetiracetam 500 mg tablet 500 mg PO BID omeprazole 20 mg capsule,delayed release(DR/EC) 20 mg PO DAILY@0630 bupropion HCl 150 mg tablet sustained-release 12 hr 150 mg PO DAILY metoprolol succinate 25 mg tablet extended release 24 hr 25 mg PO DAILY Qty: 30 0RF Interventions: ED Discharge Assessment Last Done: 10/06/25 20:37 Discharge Date/Time: 10/06/25 20:37 Print Language: South Korean
--- OUTSIDE RECORDS SUMMARY | 2025-10-06 19:40 | XMS_ITS | Encounter Summary ---
Author Organization [facility] Address [address] [address] Phone Care Team Providers Care Music Copyist Name Role Phone ChanceRoger martinmarita SHAFER Primary Care Provider [phone] Self-Referred, Patient Unavailable Unavailab David Weinberg MD Unavailable Encounter Details Date Type Department Care Team (Late st Contact Info) Description 07/29/2024 Procedure Pass [facility]'s Senior Formulation Scientist [place] [address] [place] [address] Social History Tobacco Use Types Packs/Day Years [...] documented in this encounter Plan of Treatment Upcoming Encounters Date Type Department Care Team (Latest Contact Info) Description 10/19/2025 9:30 AM EST Telemedicine - audio only [facility] Neuro[facility] [address] [place] [address] Leann Flores PA-C [address] [place] [address] [email or web address] documented as of this encounter Visit Diagnoses Not on filedocumented in this encounter Care Teams Music Copyist Relationship Specialty Start Date End Date Gretchen Fletcher NP [address] [place] [address] PCP - General Nurse Practitioner 06/04/24 Self-Referred, Patient Referring Physician 06/04/24 David Roper MD [address] [place] [id number] [email or web address] Referring Physician Radiation Oncology 06/04/24 documented as of this encounter Additional Source Comments The information contained in this document represents components of the legal health record. It is not the complete legal health record.[facility]
--- OUTSIDE RECORDS SUMMARY | 2025-10-06 19:40 | XMS_ITS | Encounter Summary ---
Author Organization [employer] [facility] Address [address] [facility] [address] [place] [address] Phone Care Team Providers Care Stave Mill Hand Name Role Phone ChanceRoger martinmarita SHAFER Primary Care Provider [phone] Self-Referred, Patient Unavailable Unavailab David Weinberg MD Unavailable Encounter Details Date Type Department Care Team (Late st Contact Info) Description 2024 Procedure Pass [facility] [address] [place] [address] Social History Tobacco Use Types Packs/Day Years [...] as of this encounter Plan of Treatment Upcoming Encounters Date Type Department Care Team (Latest Contact Info) Description 10/19/2025 9:30 AM EST Telemedicine - audio only [facility] [address] [place] [address] Leann Flores PA-C [address] [place] [address] [email or web address] documented as of this encounter Visit Diagnoses Not on filedocumented in this encounter Care Teams Stave Mill Hand Relationship Specialty Start Date End Date Gretchen Fletcher NP [address] [place] [address] PCP - General Nurse Practitioner 06/04/24 Self-Referred, Patient Referring Physician 06/04/24 David Roper MD [facility] [place] [address] [email or web address] Referring Physician Radiation Oncology 06/04/24 documented as of this encounter Additional Source Comments The information contained in this document represents components of the legal health record. It is not the complete legal health record.[facility]
--- OUTSIDE RECORDS SUMMARY | 2025-10-06 19:40 | XMS_ITS | Encounter Summary ---
Author Organization [facility] Address [address] [address] Phone Care Team Providers Care Pickling Solution Maker Name Role Phone ChanceGretchen martin HOLLIS Primary Care Provider [phone] Self-Referred, Patient Unavailable Unavailab David Weinberg MD Unavailable Reason for Referral * MRI/CAT Scan - Closed Specialty Diagnoses / Procedures Referred By Shayla montiel Referred To Contact Radiology Diagnoses Meningioma Procedures CT Angio 3D Reconstruction Head CHG 3D RENDERING W/INTERP&POSTPROC DIFF WORK STATION Darrick Garcia MD Phone: tel: fax: mailto:[email or web address] Referral ID Status Reason Start Date Expiration Date Visits Re quested Visits Authorized [id number] Closed 07/17/2024 07/17/2024 1 1 Encounter Details Date Type Department Care Team (Latest Contact Info) Description 07/17/2024 Ancillary Orders [facility] [address] [place] [address] Darrick Garcia MD [address] [place] [address] [email or web address] Meningioma (Primary Dx) Social History Tobacco Use [...] 9:30 AM EST Telemedicine - audio only [facility] [address] [place] [address] Leann Flores PA-C [address] [place] [address] [email or web address] documented as of this encounter Results * [...] meninges documented in this encounter Care Teams Pickling Solution Maker Relationship Specialty Start Date End Date Gretchen Fletcher NP [address] [place] [address] PCP - General Nurse Practitioner 06/04/24 Self-Referred, Patient Referring Physician 06/04/24 David Roper MD [facility]0 [place] [address] [email or web address] Referring Physician Radiation Oncology 06/04/24 documented as of this encounter Additional Source Comments The information contained in this document represents components of the legal health record. It is not the complete legal health record.[facility]
--- OUTSIDE RECORDS SUMMARY | 2025-10-06 19:40 | XMS_ITS | Encounter Summary ---
Author Organization [facility] Address [address] [employer] [facility] [address] [place] [address] Phone Care Team Providers Care Road Hogger Operator Name Role Phone ChanceRoger martinmarita SHAFER Primary Care Provider [phone] Self-Referred, Patient Unavailable Unavailab David Weinberg MD Unavailable Encounter Details Date Type Department Care Team (Late st Contact Info) Description 07/22/2024 Procedure Pass [facility] [address] [place] [address] Social History Tobacco Use Types Packs/Day Years [...] only [facility] [address] [place] [address] Leann Flores PA-C [address] [place] [address] [email or web address] documented as of this encounter Visit Diagnoses Not on filedocumented in this encounter Care Teams Road Hogger Operator Relationship Specialty Start Date End Date Chance, Gretchen, MECHANICAL SPECIALIST [address] [place] [address] PCP - General Nurse Practitioner 06/04/24 Self-Referred, Patient Referring Physician 06/04/24 David Roper MD [facility] [place] [address] [email or web address] Referring Physician Radiation Oncology 06/04/24 documented as of this encounter Additional Source Comments The information contained in this document represents components of the legal health record. It is not the complete legal health record.[facility]
--- OUTSIDE RECORDS SUMMARY | 2025-10-06 19:40 | XMS_ITS | Clinical Summary ---
Author Organization [facility] Address [address] [address] Phone Care Team Providers Care Manager Utility Name Role Phone Chance, Gretchen SHAFER Primary Care Provider [phone] Self-Referred, Patient Unavailable Unavailab David Weinberg MD [...] as needed. Partial fill ok 20 tablet 4 Active levETIRAcetam (KEPPRA) 500 MG tablet Take [...] 07/31/2024 2:11 PM EDT Plan of Treatment Upcoming Encounters Date Type Department Care Team (Latest Contact Info) Description 10/19/2025 9:30 AM EST Telemedicine - audio only [facility] [address] [place] [address] Leann Flores PA-C [address] [place] [address] [email or web address] Maintenance Due Date Last Done Comments [...] this topic Medical Devices Implanted Type Area Jail Manager Device Identifier Shelf Expiration Date Model / Serial / Lot Screw Bone 1.5x4mm Ti Self Drilling Matrixneuro - [id number] Implanted:Qty: 6 on 07/22/2024 by Darrick Garcia MD at [facility] STANDARD Left: Cranial JNJ DEPUY SYNTHES SPINE .10 4.01 / / Graft Tissue 4.0x5.0in Duragen Plus Ultra Pure Collagen Regeneration Matrix Dural - [id number] Implanted:Qty: 1 on 07/22/2024 by Darrick Garcia MD at [facility] Left: Cranial INTEGRA Blink (air taxi)CIENCES CHON PK8857 / / Cover Keren 17mm Hole Cranial Matrixneuro Titanium Ultra Low Profile - [id number] Implanted:Qty: 1 on 07/22/2024 by Darrick Garcia MD at [facility] Left: Cranial JNJ DEPUY SYNTHES SPINE . 3 / / Set Putty 3ml Graft Bone Cranios Reinced Fast Ting Syringe - [id number] Implanted:Qty: 3 on 07/22/2024 by Darrick Garcia MD at [facility] Left: Cranial [employer] 08/11/2025 615.03.01 S / / Clip Anasto 3.0mm 25 Large Vcs Vessel Closure System Extra S - [id number] Implanted:Qty: 1 on 07/22/2024 by Darrick Garcia MD at [facility] Left: Cranial Pet[employer] 4000-08 / / Procedures Procedure Name Priority Date/Time Associated Diagnosis Comments BI MAMMOGRAM OUTSIDE (NO INTERPRETATION) Routine 09/19/2023 12:05 AM EST from Last 3 Months or Most Recently Relevant to Health Maintenance Results * Mammogram Outside (No Interpretation) (09/19/2023 12:05 AM EST) Other Narrative [facility] - 06/09/2024 11:09 AM EDT This study is for PACS storage only and not for interpretation. us Kevin Vazquez MD, MPH IMG OUTSIDE IMAGING W /OUT INTERPRETATION Final Result [facility] from Last 3 Months or Most Recently Relevant to Health Maintenance Insurance MEDICARE PART A & B [employer] MEDICARE SUPPLEMENT MEDICARE PART A & B Poll Everywhere [employer] MEDICARE SUPPLEMENT MEDICARE PART A & B [facility] [place] [id number] MEDICARE PART A & B [facility] EXTENSION MEDICARE SUPPLEMENT MEDICARE PART A & B [facility] EXTENSION MEDICARE SUPPLEMENT MEDICARE PART A & B [facility] EXTENSION MEDICARE SUPPLEMENT Advance Directives For more information, please contact: [phone] (9AM - 5PM [facility], Sunday-Sunday) Documents on File Type Date Recorded Patient Fountain Operator Expl anation Healthcare Proxy 07/22/2024 * Full Code (Latest Code Status on File) Date Activated Date Inactivated Comments 07/22/2024 2:07 PM Question Answer Comments Code Status Confirmed With: Patient Care Teams Manager Utility Relationship Specialty Start Date End Date Gretchen Fletcher NP [address] [place] [address] PCP - General Nurse Practitioner 06/04/24 Self-Referred, Patient Referring Physician 06/04/24 David Roper MD [address] [place] [address] [email or web address] Referring Physician Radiation Oncology 06/04/24 Additional Source Comments The information contained in this document represents components of the legal health record. It is not the complete legal health record.[facility]
--- OUTSIDE RECORDS SUMMARY | 2025-10-06 19:40 | XMS_ITS | Patient Health Record ---
Author Organization [facility] Address [address] [place] [address] Care Team Providers Care Managing Partner Name Role Phone Sera (RETIRED) Umesh SHEARER Primary Care Prov ider Tico Ambrosio Unavailable [phone] Allergies Allergen (clinical drug ingredient) Drug/Non Drug Allergy documented on EMR Reaction Allergy Type Onset Date Status omnicef (uncoded) Unknown Allergy Ac tive gatifloxacin tequin (uncoded) Unknown Allergy Active Sulfa Unknown Drug Allergy Active Reason For Referral No Information Medications Medication SIG (Take, Route, Frequency, Duration) Notes Start Date End Date Status Omeprazole 20 MG Capsule Delayed Release TAKE 1 CAPSULE BY MOUTH EVERY DAY IN THE MORNING; Duration: 90 Active buPROPion HCl 150mg Active Fluoxetine 40 Active Multivitamin Active Rosuvastatin Calcium 10 MG Tablet Orally Active Tylenol Active Immunizations Vaccine Route Administration Date Status Comme nts Influenza Unknown 03/09/2021 Refused Social History Social History Additional Details Category Social Info Options Details Miscellaneous: Marital status: single Occupation: RN at the [employer] Section Notes: No smoking/alcohol x 12 year s No smoking/alcohol x 12 year s No smoking/alcohol x 20 year s Problems Problem Type SNOMED Code ICD Code Onset Dates Problem Status W/U Status Risk Notes Problem Esophageal reflux (199049066) Esophageal reflux (K21.9) Active confirmed Problem Screening for malignant neoplasm of colon (354922775) Encounter for screening for malignant neoplasm of colon (Z12.11) Active confirmed Problem History of adenomatous polyp of colon (872304675) History of adenomatous polyp of colon (Z86.010) Active confirmed Problem Zazueta's esophagus (584008247) Zazueta's esophagus without dysplasia (K22.70) Active confirmed Problem Screening for malignant neoplasm of rectum (341970392) Encounter for screening for malignant neoplasm of rectum (Z12.12) Active confirmed Problem Gastritis (9624482) Gastritis (K29.70) Active confirmed Problem Ulcer of esophagus (85174392) 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) Active confirmed Problem Diverticulosis of sigmoid colon (138931861) Diverticulosis of sigmoid colon (K57.30) Active confirmed Plan Of Treatment Future Test Test Name Order Date UPPER GI ENDOSCOPY 11/16/2015 COLONOSCOPY 11/16/2015 UPPER GI ENDOSCOPY 03/09/2021 COLONOSCOPY 03/09/2021 Insurance Providers Payer Name Payer Address Payer Phone Subscriber Number Group Number Insured Name Patient Relationship to Insured Coverage Start Date Coverage End Date [facility] [address] [place] [address] [id number] KRIS PALACIO Self - patient is the insured Medical (General) History Medical History History ICD Code Surveillance EGD/Screening C olonoscopy 06/13/2011-small HH and Zazueta's, no dysplasia; gastritis, neg. H.pylori; tubular adenomas, diverticulosis and internal hemorrhoids Depression EtOH abuse with sobriety since 2000 GERD/Barretts Esophagus as above Denies DE,DM,CVA,renal disease Asthma Upper GI bleeding in 2000 in relation to gastric ulcers-this was when she was actively drinking, smoking, and using NSAIDs. Sleep apnea-cpap machine Hyperlipidemia Meningioma brain tumor removed in 2018-Kelin Mason at [facility]--no XRT/Chemo Colonoscopy in February of 2016 [...]
--- OUTSIDE RECORDS SUMMARY | 2025-10-06 19:40 | XMS_ITS | Encounter Summary ---
Author Organization [facility] Address [address] [address] Phone Care Team Providers Care Wireless Architect Name Role Phone ChanceRoger martinmarita SHAFER Primary Care Provider [phone] Self-Referred, Patient Unavailable Unavailab David Weinberg MD Unavailable Encounter Details Date Type Department Care Team (Late st Contact Info) Description 07/22/2024 Procedure Pass [facility]iop [address] [place] [address] Social History Tobacco Use Types Packs/Day Years [...] [facility] [address] [place] [address] Leann Flores PA-C [address] [place] [address] [email or web address] documented as of this encounter Visit Diagnoses Not on filedocumented in this encounter Care Teams Wireless Architect Relationship Specialty Start Date End Date Gretchen Fletcher NP [address] [place] [address] PCP - General Nurse Practitioner 06/04/24 Self-Referred, Patient Referring Physician 06/04/24 David Roper MD [facility] [place] [address] [email or web address] Referring Physician Radiation Oncology 06/04/24 documented as of this encounter Additional Source Comments The information contained in this document represents components of the legal health record. It is not the complete legal health record.[facility]
--- OUTSIDE RECORDS SUMMARY | 2025-10-06 19:40 | XMS_ITS | Data Portability ---
Author Organization [facility] [address] Address [address] [place] [address] Assessment No assessment recorded. Plan of Treatment Reminders Order Date Submit Date Provider Last Modified By Organization Details Last Modified Time Details Appointments None recorded. Lab None recorded. Referral None recorded. Procedures None recorded. Surgeries None recorded. Imaging None recorded. Medication Orders Allergy Relief (fluticason e) 50 mcg/actuati on nasal spray,suspe nsion 2022 023 [facility][id number], [address] [place], [address], 3 17:59:38 prednisone 20 mg tablet 2022 023 [id number], [address] [place], [address], 3 17:59:34 Patient TargetsNo targets recorded. Patient Instructions Encounter Date Encounter Id Patient Instructions Last Modified By Organization Details Last Modified Time 02/01/2023 [id number] An ear infection may start with a [...] taking a prescription pain medicine, take an ktez-xop-qfyjdke medicine, such as acetaminophen (Tylenol), ibuprofen (Advil, [...] Address Organization Details Recorded Time Sleep apnea 36542645 Active 2022 MAGDIEL DEPINTO null, [place] - [facility] 17:28:04 Asthma 662271680 Active 2022 MAGDIEL DEPINTO null, PA - [facility] 3 17:28:07 Depressive disorder 92200492 Active 2022 MAGDIEL DEPINTO null, PA - [facility] 17:28:12 Anxiety 35665133 Active 2022 MAGDIEL DEPINTO null, PA - [facility] 17:28:16 Gastroesoph ageal reflux disease 731624677 Active 2022 MAGDIEL DEPINTO null, PA - [facility] 3 17:28:31 Zazueta's esophagus 386494406 Completed 202202/01/2023 MAGDIEL DEPINTO null, PA - [facility] 3 17:28:38 Hypercholes terolemia 77185998 Active 2022 MAGDIEL DEPINTO null, PA - [...] Name and Address Organization Details Recorded Time 547882 Bactrim medicatio n hives Not available Not available 02/01/2023 41885 9 RxNorm MAGDIEL DEPINTO null, PA - [facility] 3 17:26:59 417778 Tequin medicatio n hives Not available Not available 02/01/2023 53380 4 RxNorm MAGDIEL DEPINTO null, PA - [facility] 3 17:27:09 616405 Omnicef medicatio n hives Not available Not available 02/01/2023 05402 RxNorm MAG[facility]EL [facility]PINTO null, [facility] - [facility] [...] Reported Respiratory rate Body temperature Oxygen saturation Heart rate Systolic And Diastolic Provider Name and Address Organization Details Last Updated DateTime 3 167.64 cm 27.4 kg/m2 66495.7 g 0 18 /min 97.4 [degF] 96 % 74 /min 131/80 mm[Hg] MAGDIEL ALEXANDER PA - [facility] 3 17:33:05 Social History Question Answer Notes LastModified by Organizat ion Details LastModified Time Tobacco Smoking Status Former Smoker MAGDIEL CHRISTINEO siva, PA - [facility] 02/01/2023 17:29:43 When [...] or 50 mcg/0.25mL dose 1 completed MAGDIEL JOSEINTO null, PA - [facility] 02/01/2023 17:26:45 COVID-19, mRNA, LNP-S, PF, 100 mcg/0.5mL dose or 50 mcg/0.25mL dose 1 completed MAGDIEL DEPINTO null, PA - [facility] 02/01/2023 17:26:45 COVID-19, mRNA, LNP-S, PF, 100 mcg/0.5mL dose or 50 mcg/0.25mL dose 1 completed MADGIEL DEPINTO null, PA - [facility] 02/01/2023 [...] ICD10 Code Diagnosis IMO Codes Diagnosis Note [id number] [address] [place] [address] 02/06/2020 15:28:18 02/06/2020 16:33:08 [id number] [address] [place] [address] 06/02/2020 18:57:39 06/02/2020 20:02:59 [id number] [address] [place] [address] 02/25/2020 15:34:11 02/25/2020 16:09:02 [id number] [address] [place] [address] 05/23/2015 18:58:54 05/23/2015 20:20:26 [id number] [address] [place] [address] 09/26/2020 17:56:56 09/26/2020 18:51:43 [id number] [address] [place] [address] 07/11/2022 15:50:40 07/11/2022 16:54:02 [id number] [address] [place] [address] 04/07/2021 11:12:18 04/07/2021 11:39:24 [id number] [address] [place] [address] 07/28/2016 15:49:23 07/28/2016 16:31:50 [id number] Harjit Henderson [place] [address] [place] [address] 02/01/2023 16:52:46 02/01/2023 18:00:00 Acute serous otitis media of bilateral ears [id number] 660393 H65.03 Health Concerns Section Related Observation LastModified by Organization Detai ls LastModified Time None Recorded Concern Status LastModified by Organization Details LastModified Time None Recorded Advance Directives Directive None Recorded Payers Insurance Date Sequence Insurance Name Policy Number Policy Copeland Covered Member ID Copeland Member ID Guarantor Name 05/07/2023 2 [facility] [id number] Brittny A Alfredo [id number] Brittny A Alfredo 05/07/2023 1 MEDICARE B-LA: [facility] Brittny A Alfredo [id number] Brittny A Alfredo Notes Date Note [...] BreathReported by Patient Harjit Henderson NP [address] [place], [address], [place] - [facility] 02/01/2023 18:00:15 OBGyn Episode No OBEpisode recorded.
--- OUTSIDE RECORDS SUMMARY | 2025-10-06 19:40 | XMS_ITS | Encounter Summary ---
Author Organization [facility] Address [address] [facility] [address] [place] [address] Phone Care Team Providers Care Bus And Sys Integration Senior Manager Name Role Phone ChanceRoger martinmarita SHAFER Primary Care Provider [phone] Self-Referred, Patient Unavailable Unavailab David Weinberg MD Unavailable Encounter Details Date Type Department Care Team (Late st Contact Info) Description 07/17/2024 Procedure Pass [facility] [address] [place] [address] Social History Tobacco Use Types Packs/Day Years [...] only [facility] [address] [place] [address] Leann Flores PA-C [address] [place] [address] [email or web address] documented as of this encounter Visit Diagnoses Not on filedocumented in this encounter Care Teams Bus And Sys Integration Senior Manager Relationship Specialty Start Date End Date Gretchen Fletcher NP [address] [place] [address] PCP - General Nurse Practitioner 06/04/24 Self-Referred, Patient Referring Physician 06/04/24 David Roper MD [facility] [place] [address] [email or web address] Referring Physician Radiation Oncology 06/04/24 documented as of this encounter Additional Source Comments The information contained in this document represents components of the legal health record. It is not the complete legal health record.[facility]
[2025-10-06 20:26] VITALS: BP 117/61; PULSE 63; RESP 17; TEMP 36.6; O2SAT 97
[2025-10-06 20:37] VITALS: BP 117/61; PULSE 63; RESP 17; TEMP 36.6; O2SAT 97
== END 2025-10-06 20:37 | disposition home or self-care (01) ==
PROVIDERS: Emergency Provider Emergency Medicine; PCP Nurse Practitioner Family
DX: S09.90XA Unspecified injury of head, initial encounter (principal); W18.30XA Fall on same level, unspecified, initial encounter; Y93.E9 Activity, other interior property and clothing maintenance; Y92.009 Unspecified place in unspecified non-institutional (private) residence as the place of occurrence of the external cause; E78.5 Hyperlipidemia, unspecified; J45.909 Unspecified asthma, uncomplicated; K21.9 Gastro-esophageal reflux disease without esophagitis; Z87.891 Personal history of nicotine dependence
CPT/HCPCS: 70450; 70486; 72125; 99284

== ENCOUNTER → 2025-10-06 18:23 | Outpatient (BNV) | payer MEDICARE, OTHER, SELFPAY | PROVIDERS: PCP Nurse Practitioner Family; Visit Provider Radiology Diagnostic Radiology | DX: Z04.3 Encounter for examination and observation following other accident (principal) | CPT/HCPCS: 70450; 70486 ==